=== PATIENT | male | born 1940 | race African-American/Black ===

== ENCOUNTER 2019-06-08 08:14 | Emergency (ER) | payer MEDICARE ==
[2019-06-08 10:36] LABS: APPEARANCE,URINE CLEAR; BILIRUBIN,URINE NEGATIVE (NEGATIVE); COLOR,URINE YELLOW; GLUCOSE, URINE >=500 mg/dL (NEGATIVE); KETONES,URINE NEGATIVE (NEGATIVE); LEUKOCYTE ESTERASE,URINE TRACE (NEGATIVE); NITRITE,URINE NEGATIVE (NEGATIVE); PROTEIN,URINE 100 mg/dL (NEGATIVE); URINE SPECIFIC GRAVITY 1.011; UROBILINOGEN,URINE NEGATIVE mg/dL (<2.0)
--- NOTE | 2019-06-08 11:44 | RADIOLOGY REPORT (SQ) ---
EXAM DESCRIPTION: CHEST 2 VIEWS COMPLETED DATE/TIME: 06/08/2019 11:35 am REASON FOR STUDY: cough COMPARISON: None. EXAM PARAMETERS: NUMBER OF VIEWS: two views TECHNIQUE: Digital Frontal and Lateral radiographic views of the chest acquired. RADIATION DOSE: NA LIMITATIONS: none FINDINGS: LUNGS AND PLEURA: Minimal bibasilar atelectasis. No consolidation or effusions. MEDIASTINUM AND HILAR STRUCTURES: No masses or contour abnormalities. HEART AND VASCULAR STRUCTURES: Heart normal size. No evidence for failure. BONES: No acute findings. HARDWARE: None in the chest. OTHER: No other significant finding. IMPRESSION: No significant findings in the chest. TECHNICAL DOCUMENTATION: JOB ID: [id number] 2010 [employer]- All Rights Reserved Reading location - IP/workstation name: [email or web address]
[2019-06-08 12:09] LABS: A TYPE INFLUENZA AG NEGATIVE (NEGATIVE); B INFLUENZA AG NEGATIVE (NEGATIVE)
[2019-06-08] MEDS ORDERED: CEPHALEXIN 500 MG CAPSULE PO ONE (12:48)
--- NOTE | 2019-06-08 12:48 | ER Document Report ---
Entered by LINDSEY ATKINSON SCRIBE 06/08/19 1120 Acting as scribe for:ELVER STEPHENSON, DO ED Flu Like - General Chief Complaint: Flu Symptoms Stated Complaint: COLD/COUGH Time Seen by Provider: 06/08/19 10:44 Primary Care Provider: PADMA GUILLORY MD [Primary Care Provider] - Follow up as needed Mode of Arrival: Ambulatory Information source: Patient Notes: This 78-year-old male patient presents to the emergency department today with complaints of a runny nose, headache, generalized body aches, cough, and nausea for the last x5 days. Patient states x5 days ago he went to [place] for his sister's and he is unsure if he had any sick contacts there. Patient denies any vomiting. TRAVEL OUTSIDE OF THE [place] IN LAST 30 DAYS: No - Related Data Allergies/Adverse Reactions: No Known Allergies Allergy (Unverified 06/08/19 09:36) Home Medications: insulin, glipizide Past Medical History - General Information source: Patient - Social History Smoking Status: Former Smoker Cigarette use (# per day): No Frequency of alcohol use: None Drug Abuse: None Lives with: Family Family History: Reviewed & Not Pertinent Patient has suicidal ideation: No Patient has homicidal ideation: No - Past Medical History Cardiac Medical History: Reports: Hx Heart Attack - x 3, Hx Hypertension Endocrine Medical History: Reports: Hx Diabetes Mellitus Type 2 Surgical Hx: Negative Review of Systems - Review of Systems Constitutional: No symptoms reported EENT: See HPI, Ear pain, Nose congestion Cardiovascular: No symptoms reported Respiratory: See HPI, Cough Gastrointestinal: See HPI, Nausea. denies: Vomiting Genitourinary: No symptoms reported Male Genitourinary: No symptoms reported Musculoskeletal: No symptoms reported Skin: No symptoms reported Hematologic/Lymphatic: No symptoms reported Neurological/Psychological: See HPI, Headaches -: Yes All other systems reviewed and negative Physical Exam - Vital signs Vitals: Temp Pulse Resp BP Pulse Ox 99 F 79 20 144/76 H 95 06/08/19 08:31 06/08/19 08:31 06/08/19 08:31 06/08/19 08:31 06/08/19 08:31 - Notes Notes: Physical Exam: General: Alert, appears well. HEENT: Normocephalic. Atraumatic. PERRL. Extraocular movements intact. Oropharynx clear. Neck: Supple. Non-tender. Respiratory: No respiratory distress. Diminished breath sounds bilaterally. Cardiovascular: Regular rate and rhythm. Abdominal: Normal Inspection. Non-tender. No distension. Normal Bowel Sounds. Back: No gross abnormalities. Extremities: Moves all four extremities. Upper extremities: Normal inspection. Normal ROM. Lower extremities: Normal inspection. No edema. Normal ROM. Neurological: Normal cognition. AAOx4. Normal speech. Psychological: Normal affect. Normal Mood. Skin: Warm. Dry. Normal color. Course - Re-evaluation Re-evalutation: 06/08/19 12:43 MDM 78 year old male presents with cough for 4 days. UA shows UTI. CXR is reassuring and flu negative. Will treat cough symptomatically and FSBS is just up a bit. Feel he is safe for follow up. I certainly see no sign of sepsis in this nice gentleman. - Vital Signs Vital signs: Temp Pulse Resp BP Pulse Ox 99 F 79 20 144/76 H 95 06/08/19 08:31 06/08/19 08:31 06/08/19 08:31 06/08/19 08:31 06/08/19 08:31 - Laboratory Laboratory results interpreted by me: 06/08/19 06/08/19 10:10 11:41 POC Glucose 195 H Urine Protein 100 H Urine Glucose (UA) >=500 H Urine Blood SMALL H Ur Leukocyte Esterase TRACE H - Diagnostic Test Radiology reviewed: Reports reviewed Discharge - Discharge Clinical Impression: Cough, Hyperglycemia UTI (urinary tract infection) Qualifiers: Urinary tract infection type: site unspecified Hematuria presence: with hematuria Qualified Code(s): N39.0 - Urinary tract infection, site not specified; R31.9 - Hematuria, unspecified Condition: Good Disposition: HOME, SELF-CARE Instructions: Cephalexin ([facility]), Cough Suppressant & Expectorant Medications, Urinary Tract Infection ([facility]) Additional Instructions: Rest, follow your diabetic diet. Please return here for any problems or any concerns. Prescriptions: Benzonatate [Tessalon Perles 100 mg Capsule] 200 mg PO Q8HP PRN #40 capsule PRN Reason: Cephalexin Monohydrate [Keflex 500 mg Capsule] 500 mg PO TID #30 capsule Referrals: PADMA GUILLORY MD [Primary Care Provider] - Follow up as needed I personally performed the services described in the documentation, reviewed and edited the documentation which was dictated to the scribe in my presence, and it accurately records my words and actions.
[2019-06-08 13:06] VITALS: BP 140/70
== END 2019-06-08 13:10 | disposition home or self-care (01) ==
LOC: ER 08:14
DX: R05 Cough (principal); N39.0 Urinary tract infection, site not specified; R31.9 Hematuria, unspecified; E11.65 Type 2 diabetes mellitus with hyperglycemia; R09.89 Other specified symptoms and signs involving the circulatory and respiratory systems; R51 Headache; R11.0 Nausea; H92.09 Otalgia, unspecified ear; R09.81 Nasal congestion; I10 Essential (primary) hypertension; Z79.4 Long term (current) use of insulin; Z87.891 Personal history of nicotine dependence
CPT/HCPCS: 99283; 82962; 81001; 87804; 71046; A9270

== ENCOUNTER 2020-01-23 15:59 | Inpatient (IN) | payer MEDICARE ==
[2020-01-23] MEDS ORDERED: NORMAL SALINE 1000 ML 1,000 ML IV ONE (16:46)
[2020-01-23] MEDS ORDERED: ONDANSETRON HCL INJ/PF 4 MG/2 ML SDV IV ONE (16:48)
--- NOTE | 2020-01-23 16:50 | ER Document Report ---
ED Medical Screen (RME) - General Chief Complaint: Abdominal Pain Stated Complaint: ABDOMINAL PAIN Time Seen by Provider: 01/23/20 16:46 Primary Care Provider: PAMDA GUILLORY MD [Primary Care Provider] - Follow up as needed Mode of Arrival: Wheelchair Information source: Patient Notes: 79-year-old male presented to ED for complaint of abdominal pain nausea and vomiting for about 1 or 2 weeks. He states he has not been to his MD. He states he does have diabetes and he takes pills and insulin. He states she has been taking his medications as ordered. He states his Accu-Chek was 200 and something this morning but does not remember what. He states he did take it this morning. Patient is alert oriented answering questions appropriately. Have ordered blood urine IV fluids nausea medicine and Accu-Chek. I have greeted and performed a rapid initial assessment of this patient. A comprehensive ED assessment and evaluation of the patient, analysis of test results and completion of medical decision making process will be conducted by an additional ED providers. TRAVEL OUTSIDE OF THE [place] IN LAST 30 DAYS: No - Related Data Allergies/Adverse Reactions: No Known Allergies Allergy (Unverified 06/08/19 09:36) Past Medical History - Past Medical History Cardiac Medical History: Reports: Hx Heart Attack - x 3, Hx Hypertension Endocrine Medical History: Reports: Hx Diabetes Mellitus Type 2 Physical Exam - Vital signs Vitals: Temp Pulse Resp BP Pulse Ox 100.1 F 103 H 20 109/66 95 01/23/20 16:06 01/23/20 16:06 01/23/20 16:06 01/23/20 16:06 01/23/20 16:06 Course - Vital Signs Vital signs: Temp Pulse Resp BP Pulse Ox 100.1 F 103 H 20 109/66 95 01/23/20 16:06 01/23/20 16:06 01/23/20 16:06 01/23/20 16:06 01/23/20 16:06 Doctor's Discharge - Discharge Referrals: PADMA GUILLORY MD [Primary Care Provider] - Follow up as needed
[2020-01-23 18:03] LABS: ABSOLUTE LYMPHOCYTES (AUTO) 0.8 10^3/uL (0.5-4.7); ABSOLUTE MONOCYTES (AUTO) 0.6 10^3/uL (0.1-1.4); ABSOLUTE NEUT (AUTO) 5.3 10^3/uL (1.7-8.2); BASOPHILS % (AUTO) 0.2 % (0-2); HEMATOCRIT 44.3 % (37.9-51.0); HEMOGLOBIN 15.5 g/dL (13.5-17.0); LYMPHOCYTES % (AUTO) 12.5 % (13-45); MEAN CORPUSCULAR HEMOGLOBIN 31.2 pg (27.0-33.4); MEAN CORPUSCULAR VOLUME 89 fl (80-97); MONOCYTES % (AUTO) 8.3 % (3-13); PLATELET COUNT 198 10^3/uL (150-450); RED BLOOD COUNT 4.97 10^6/uL (4.35-5.55); RED CELL DISTRIBUTION WIDTH 14.9 % (11.5-14.0); TOTAL CELLS COUNTED % (AUTO) 100 %; WHITE BLOOD COUNT 6.8 10^3/uL (4.0-10.5)
[2020-01-23 18:31] LABS: ALBUMIN 3.7 g/dL (3.5-5.0); ALKALINE PHOSPHATASE 66 U/L (38-126); ANION GAP 11 (5-19); ASPARTATE AMINO TRANSFERASE 115 U/L (17-59); BILIRUBIN,DIRECT 0.5 mg/dL (0.0-0.4); BILIRUBIN,TOTAL 0.9 mg/dL (0.2-1.3); BLOOD UREA NITROGEN 22 mg/dL (7-20); CALCIUM 8.5 mg/dL (8.4-10.2); CARBON DIOXIDE 26 mmol/L (22-30); CHLORIDE 94 mmol/L (98-107); GLUCOSE 257 mg/dL (75-110); POTASSIUM 4.4 mmol/L (3.6-5.0); TOTAL PROTEIN 6.6 g/dL (6.3-8.2)
--- NOTE | 2020-01-23 19:12 | ER Document Report ---
ED General - General Chief Complaint: Nausea/Vomiting/Diarrhea Stated Complaint: ABDOMINAL PAIN Time Seen by Provider: 01/23/20 16:46 Mode of Arrival: Wheelchair TRAVEL OUTSIDE OF THE [place] IN LAST 30 DAYS: No - HPI Quality of pain: Achy Associated symptoms: Nonproductive cough, Vomiting. denies: Chest pain, Chills, Diarrhea, Fever, Leg swelling, Nausea, Shortness of breath Exacerbated by: Denies Relieved by: Denies Similar symptoms previously: No Notes: Patient is a 79-year-old male with a past medical history of diabetes who presents with abdominal pain and vomiting. Patient states he has had symptoms for 1 to 2 weeks. He states he has a dry cough. No chest pain. Pain is located in the periumbilical area. Patient states he had vomiting yesterday. He is not currently nauseous. No diarrhea. He denies any fever. No back pain. He denies any sick contacts. He denies any contact with COVID positive people. He was noted to be 87% on room air and placed on nasal cannula. - Related Data Allergies/Adverse Reactions: No Known Allergies Allergy (Verified 01/23/20 18:55) Past Medical History - General Information source: Patient - Social History Smoking Status: Never Smoker Family History: Reviewed & Not Pertinent - Past Medical History Cardiac Medical History: Reports: Hx Heart Attack - x 3, Hx Hypertension Endocrine Medical History: Reports: Hx Diabetes Mellitus Type 2 Review of Systems - Review of Systems Notes: CONSTITUTIONAL: No fever, fatigue or weight loss. SKIN: No rash. HENT: No congestion, ear pain, or sore throat. EYES: No recent vision problems or eye pain. ENDOCRINE: No polyuria or polydipsia. CARDIOVASCULAR: No chest pain or edema. RESPIRATORY: No shortness of breath, congestion, or wheezing. Positive for cough. GASTROINTESTINAL: Positive for abdominal pain and vomiting. No nausea or di arrhea. GENITOURINARY: No dysuria. MUSCULOSKELETAL: No joint pain or swelling. LYMPHATIC: No swollen glands. NEUROLOGIC: No seizures. No headache, focal weakness or sensory changes. HEMATOLOGIC: No unusual bruising or bleeding. PSYCHIATRIC: No depression or anxiety. Physical Exam - Vital signs Vitals: Temp Pulse Resp BP Pulse Ox 100.1 F 103 H 20 109/66 95 01/23/20 16:06 01/23/20 16:06 01/23/20 16:06 01/23/20 16:06 01/23/20 16:06 Interpretation: Normal - Notes Notes: VITAL SIGNS: Hypoxic on room air. Mild tachypnea. GENERAL: No acute distress, non-toxic appearance. HEAD: Normal with no signs of head trauma. EYES: EOMI, conjunctiva normal, no discharge. EARS: Hearing grossly intact. NOSE: Normal. THROAT: Oropharynx is normal. NECK: Normal range of motion, no tenderness, supple, no lymphadenopathy, No adenopathy, no JVD. CHEST: Coarse breath sounds bilaterally. CARDIAC: Regular rate and rhythm. S1 and S2, without murmurs, gallops, or rubs. VASCULAR: No Edema. ABDOMEN: Normal and soft. Discomfort to palpation of periumbilical area and left upper quadrant. GENITOURINARY: Normal, No tenderness LYMPATHTIC: No lymphadenopathy noted. MUSCULOSKELETAL: Good range of motion of all major joints. Extremities without clubbing, cyanosis or edema. NEUROLOGICAL: Alert and oriented x 3. No focal sensory or strength deficits. Speech normal. Follows commands appropriately. PSYCHIATRIC: Normal Affect, judgement and mood. SKIN: Normal appearance with no rashes or lesions. Course - Re-evaluation Re-evalutation: 01/23/20 19:12 Patient was noted to be hypoxic on room air with a good waveform. He is denying shortness of breath but has had a cough. He also has nausea and abdominal pain. I am concerned for COVID-19. We will obtain testing. Patient will need to be admitted to the hospital as he is currently on 3 L nasal cannula. Chest x-ray was inconclusive for infection, so I obtained a CT. He does have groundglass opacities. He was given Decadron as I am concerned for COVID. He also has an incidental finding of a right ureteral stone that is 10 cm with severe hydronephrosis. I discussed this with the patient. He is not having any symptoms or pain or urinary symptoms. He states he has had a kidney stone for "quite a while" but he has not treated it. I did discuss with [facility]. They recommended that he follow-up outpatient and stated this is not requiring and emergent procedure. They also recommended that we obtain a urine culture and give Rocephin to prevent infection. I discussed this with the patient. He is agreeable to admission. I also discussed with the hospitalist. 01/23/20 23:42 01/24/20 02:36 - Vital Signs Vital signs: Temp Pulse Resp BP Pulse Ox 98.8 F 103 H 20 134/81 H 96 01/23/20 17:46 01/23/20 16:06 01/24/20 01:01 01/24/20 01:00 01/24/20 01:01 - Laboratory Result Diagrams: 01/23/20 17:34 01/23/20 17:34 Laboratory results interpreted by me: 01/23/20 01/23/20 01/23/20 17:34 17:34 17:34 RDW 14.9 H Lymph % (Auto) 12.5 L Seg Neutrophils % 79.0 H Sodium 131.1 L Chloride 94 L BUN 22 H Creatinine 1.38 H Est GFR (MDRD) Non-Af 50 L Glucose 257 H Ferritin 1000.00 H Direct Bilirubin 0.5 H AST 115 H ALT 95 H Lactate Dehydrogenase 461 H C-Reactive Protein 159.1 H Lipase 345.1 H Urine Protein Urine Glucose (UA) Urine Blood Urine Urobilinogen 01/23/20 20:53 RDW Lymph % (Auto) Seg Neutrophils % Sodium Chloride BUN Creatinine Est GFR (MDRD) Non-Af Glucose Ferritin Direct Bilirubin AST ALT Lactate Dehydrogenase C-Reactive Protein Lipase Urine Protein 100 H Urine Glucose (UA) >=500 H Urine Blood SMALL H Urine Urobilinogen 2.0 H - EKG Interpretation by Me EKG shows normal: Sinus rhythm Rate: Normal Additional EKG results interpreted by me: 01/23/20 19:12 EEG interpreted by me. Sinus rhythm at a rate of 85. QTc 433. No acute ST changes. No previous EKG available for comparison. Discharge - Discharge Clinical Impression: Ureteral stone with hydronephrosis Acute respiratory failure Qualifiers: Respiratory failure complication: hypoxia Qualified Code(s): J96.01 - Acute respiratory failure with hypoxia Condition: Stable Disposition: ADMITTED INPATIENT Admitting Provider: Muriel (Hospitalist) Unit Admitted: Medical Floor
[2020-01-23 19:18] LABS: VENOUS BLOOD HCO3 26.8 mmol/L (20-32); VENOUS BLOOD PCO2 46.8 mmHg (35-63); VENOUS BLOOD PH 7.38 (7.30-7.42)
--- NOTE | 2020-01-23 19:34 | RADIOLOGY REPORT (SQ) ---
EXAM DESCRIPTION: CHEST SINGLE VIEW IMAGES COMPLETED DATE/TIME: 01/23/2020 7:15 pm REASON FOR STUDY: cough, shortness of breath COMPARISON: 06/08/2019 EXAM PARAMETERS: NUMBER OF VIEWS: One view. TECHNIQUE: Single frontal radiographic view of the chest acquired. RADIATION DOSE: NA LIMITATIONS: None. FINDINGS: LUNGS AND PLEURA: Mild chronic interstitial changes. Cannot exclude slight opacification in the medial right base. MEDIASTINUM AND HILAR STRUCTURES: No masses. Contour normal. HEART AND VASCULAR STRUCTURES: Heart normal in size. Normal vasculature. BONES: No acute findings. HARDWARE: None in the chest. OTHER: No other significant finding. IMPRESSION: Chronic lung changes. Cannot exclude a very limited right lower lobe pneumonia. TECHNICAL DOCUMENTATION: JOB ID: [id number] 2010 [employer]- All Rights Reserved Reading location - IP/workstation name: [email or web address]
[2020-01-23 19:43] LABS: A TYPE INFLUENZA AG NEGATIVE (NEGATIVE); B INFLUENZA AG NEGATIVE (NEGATIVE)
[2020-01-23 19:59] LABS: C-REACTIVE PROTEIN 159.1 mg/L (<10.0)
--- NOTE | 2020-01-23 20:17 | RADIOLOGY REPORT (SQ) ---
CT CHEST, ABDOMEN, AND PELVIS WITHOUT INTRAVENOUS CONTRAST: 01/23/2020 7:11 PM CDT HISTORY: 79-year old with abdominal and chest pain. COMPARISON: None available TECHNIQUE: Axial contiguous images were obtained from the lung apices to the proximal femurs without intravenous intravenous contrast administered. Sagittal and coronal reconstructions were also obtained and reviewed. This exam was performed according to our departmental dose-optimization program, which includes automated exposure control, adjustment of the mA and/or KV according to the patient's size and/or use of iterative reconstruction technique. FINDINGS: The heart size is enlarged. No pericardial effusion is seen. Coronary artery calcifications are seen. No significant mediastinal, supraclavicular, or axillary lymphadenopathy is seen. The thoracic aorta is at the upper limits of normal in size. The main pulmonary artery is within normal limits for size. There are bilateral interstitial airspace opacities present. Most of these are predominantly in the periphery. No discrete pleural effusion is seen. There is no evidence of a pneumothorax. The bones demonstrate no suspicious lytic or blastic lesion. The visualized hepatic parenchyma is unremarkable. There is a hypodensity within the dome of the right lobe of the liver measuring up to 1.5 cm. This likely represents a cyst. There is a similar lesion seen near the falciform ligament measuring at least 2.0 cm. The gallbladder demonstrates no evidence of calcified gallstones. The spleen is normal in size. The pancreas is unremarkable. The bilateral adrenal glands appear unremarkable. There is moderate to severe right hydroureteronephrosis, secondary to a 1 cm calculus at the proximal right ureter, just distal to the ureteropelvic junction. There are calculi seen at the left kidney measuring up to 1 cm in size. No other right renal calculi are seen. No bladder calculi are apparent. The urinary bladder is mildly distended, and appears grossly unremarkable. The stomach is not well distended. The small bowel loops appear unremarkable. No pericolonic inflammatory stranding is seen. There are multiple diverticula seen within the sigmoid and descending colon, without evidence to suggest diverticulitis. The appendix appears unremarkable. There is no evidence of pneumoperitoneum or free fluid. The aorta and IVC appear normal in size. No significantly enlarged lymph nodes are seen in the abdomen or pelvis. Review of the bone show no evidence of any suspicious lytic or blastic lesions. Multilevel degenerative changes are seen at the thoracic and lumbar spine. There is minimal anterolisthesis of L4 over L5 by 2 to 3 mm. There is a disc osteophyte at L5/S1. IMPRESSION: There are bilateral groundglass airspace opacities most pronounced within the periphery. These likely reflect an atypical infection, though this can also be seen with interstitial lung processes and other etiologies. There is moderate to severe right hydroureteronephrosis, secondary to a 1 cm calculus at the proximal right ureter, just distal to the ureteropelvic junction. There are calculi seen at the left kidney measuring up to 1 cm in size.
[2020-01-23] MEDS ORDERED: DEXAMETHASONE SOD PHOS INJ 10 MG/1 ML VIAL IV ONE (20:32)
[2020-01-23 21:40] LABS: APPEARANCE,URINE SLIGHTLY-CLOUDY; BILIRUBIN,URINE NEGATIVE (NEGATIVE); COLOR,URINE YELLOW; GLUCOSE, URINE >=500 mg/dL (NEGATIVE); KETONES,URINE NEGATIVE (NEGATIVE); LEUKOCYTE ESTERASE,URINE NEGATIVE (NEGATIVE); NITRITE,URINE NEGATIVE (NEGATIVE); PROTEIN,URINE 100 mg/dL (NEGATIVE); URINE SPECIFIC GRAVITY 1.015
--- NOTE | 2020-01-23 21:54 | EKG REPORT ---
SEVERITY:- BORDERLINE ECG - SINUS RHYTHM BORDERLINE LEFT AXIS DEVIATION CONSIDER ANTERIOR INFARCT : Confirmed by: Joid Greenwood MD 23-Jan-2020 21:53:35
[2020-01-23] MEDS ORDERED: CEFTRIAXONE 1 GM/D5W RTU 1 GM/50 ML RTUPB IV ONE (23:25)
[2020-01-24] MEDS ORDERED: MAGNESIUM HYDROXIDE SUSP 30 ML UDCUP PO PRN (00:18)
[2020-01-24] MEDS ORDERED: MAG HYDROX/AL HYDROX/SIMETH SUSP 30 ML UDCUP PO PRN (00:18)
[2020-01-24] MEDS ORDERED: ACETAMINOPHEN 325 MG TABLET PO PRN (00:22)
[2020-01-24] MEDS ORDERED: MORPHINE SULFATE 10 MG/ML INJ IV PRN ×5 (00:22→18:07)
[2020-01-24] MEDS ORDERED: LORAZEPAM INJ 2 MG/1 ML VIAL IV PRN (00:22)
[2020-01-24] MEDS ORDERED: METOPROLOL TARTRATE PF/INJ 5 MG/5 ML SDV IV PRN (00:22)
[2020-01-24] MEDS ORDERED: HYDRALAZINE HCL INJ/PF 20 MG/1 ML SDV IV PRN (00:22)
[2020-01-24] MEDS ORDERED: MELATONIN 5 MG TABLET PO PRN (00:22)
[2020-01-24] MEDS ORDERED: GLUCAGON,HUMAN RECOMB 1 MG INJ IM PRN (00:25)
[2020-01-24] MEDS ORDERED: DEXTROSE 40% GEL 15 GM TUBE PO PRN ×2 (00:25)
[2020-01-24] MEDS ORDERED: DEXTROSE 50%-WATER 25 GM/50 ML DISP.SYRIN IV PRN ×2 (00:25)
[2020-01-24] MEDS ORDERED: AZITHROMYCIN INJ 500 MG VIAL IV PRN (01:00)
[2020-01-24] MEDS ORDERED: AZITHROMYCIN 500 MG in DEXTROSE 5%-WATER 250 ML IV ONE (01:00)
[2020-01-24] MEDS ORDERED: AZITHROMYCIN INJ 500 MG VIAL IV ONE (03:15)
--- NOTE | 2020-01-24 04:09 | PDOC H&P ---
History of Present Illness Admission Date/PCP: 01/23/2020 23:55 PADMA GUILLORY MD Patient complains of: Dyspnea History of Present Illness: VANIA NUNES is a 79 year old male who presents the emergency room with a 1- week history of dyspnea. He admits gradually worsening dyspnea accompanied by a nonproductive cough and intermittent chest pains over the course of the last week. His dyspnea has more recently been associated with subjective fever with chills, vague achy periumbilical abdominal pain and one episode of vomiting yesterday. His dyspnea is worsened with exertion. He denies other associated or accompanying signs and symptoms. He denies prior similar episodes. He has not identified any additional aggravating or ameliorating factors for his dyspnea. In the emergency room he was found to be hypoxic on room air and improved with supplemental oxygen via nasal cannula. His chest CT revealed a multifocal pneumonia consistent with COVID-19. Patient was subsequently admi tted for further evaluation and treatment after initiation of dexamethasone and antibiotic therapy in the emergency room. Patient is noted to be a very poor historian. Past Medical History Cardiac Medical History: Reports: Coronary Artery Disease, Myocardial Infarction - x 3, Hypertension Denies: Atrial Fibrillation, DVT, Pulmonary Embolism Pulmonary Medical History: Denies: Asthma, Chronic Obstructive Pulmonary Disease (COPD) EENT Medical History: Denies: Cataracts, Ears - Hearing aids Neurological Medical History: Denies: Hemorrhagic CVA, Ischemic CVA, Seizures Endocrine Medical History: Reports: Diabetes Mellitus Type 2 Denies: Diabetes Mellitus Type 1, Hyperthyroidism, Hypothyroidism, Obesity Renal/ Medical History: Reports: Nephrolithiasis Denies: Chronic Kidney Disease Malignancy Medical History: Reports: None GI Medical History: Denies: Cirrhosis, Hepatitis, Peptic Ulcer Disease Musculoskeltal Medical History: Denies: Fibromyalgia, Gout Skin Medical History: Denies: Eczema, Psoriasis Psychiatric Medical History: Denies: Alcohol Dependency, Substance Abuse, Tobacco Dependency Traumatic Medical History: Reports: None Hematology: Denies: Anemia, Bleeding Tendencies Infectious Medical History: Reports: None Past Surgical History Past Surgical History: Reports: Other - Prostate surgery: TURP Social History Information Source: Patient Lives with: Family Smoking Status: Never Smoker Electronic Cigarette use?: No Frequency of Alcohol Use: None Hx Recreational Drug Use: No Drugs: None Hx Prescription Drug Abuse: No - Advance Directive Resuscitation Status: Full Code Surrogate healthcare decision maker:: Chiquita Gabe Family History Family History: denies: CAD, DM, Hypertension, Malignancy Parental Family History Reviewed: Yes Children Family History Reviewed: No Sibling(s) Family History Reviewed.: Yes Medication/Allergy Home Medications: Benzonatate [Tessalon Perles 100 mg Capsule] 200 mg PO Q8HP PRN #40 capsule 06/08/19 Cephalexin Monohydrate [Keflex 500 mg Capsule] 500 mg PO TID #30 capsule Insulin Degludec [Tresiba Flextouch U-200] 20 units SQ DAILY 06/08/19 Lisinopril 20 mg PO DAILY 06/08/19 Pioglitazone HCl [Actos 15 mg Tablet] 15 mg PO DAILY 06/08/19 Allergies/Adverse Reactions: No Known Allergies Allergy (Verified 01/23/20 18:55) Review of Systems Constitutional: PRESENT: as per HPI, chills, fever(s) Eyes: ABSENT: visual disturbances, other - Eye pain Ears: ABSENT: hearing changes, other - Ear pain Nose, Mouth, and Throat: ABSENT: headache(s), sore throat Cardiovascular: PRESENT: as per HPI, chest pain, dyspnea on exertion. ABSENT: palpitations Respiratory: PRESENT: as per HPI, cough, dyspnea. ABSENT: hemoptysis, sputum Gastrointestinal: PRESENT: as per HPI, abdominal pain, nausea, vomiting. ABSENT: constipation, diarrhea Genitourinary: ABSENT: dysuria, hematuria Musculoskeletal: ABSENT: joint swelling, muscle weakness Integumentary: ABSENT: pruritus, rash Neurological: ABSENT: confusion, convulsions, focal weakness, memory loss, syncope Psychiatric: ABSENT: anxiety, depression Endocrine: ABSENT: cold intolerance, heat intolerance Hematologic/Lymphatic: ABSENT: easy bleeding, easy bruising Allergic/Immunologic: ABSENT: seasonal rhinorrhea Physical Exam Vital Signs: Temp Pulse Resp BP Pulse Ox 98.8 F 103 H 25 H 142/80 H 97 01/23/20 17:46 01/23/20 16:06 01/23/20 21:01 01/23/20 21:01 01/23/20 21:01 Intake & Output 01/21/20 01/22/20 01/23/20 23:59 23:59 23:59 Intake Total 1000 Balance 1000 Weight 65.9 kg General appearance: PRESENT: no acute distress, cooperative, other - On supplemental oxygen at the time of my exam Head exam: PRESENT: atraumatic, normocephalic Eye exam: PRESENT: conjunctiva pink. ABSENT: conjunctival injection, scleral icterus Ear exam: PRESENT: normal external ear exam. ABSENT: bleeding, drainage Mouth exam: PRESENT: dry mucosa, neck supple Neck exam: ABSENT: thyromegaly, tracheal deviation Respiratory exam: PRESENT: clear to auscultation randy, symmetrical, unlabored, other - On supplemental oxygen at time of my exam Cardiovascular exam: PRESENT: RRR. ABSENT: clicks, gallop, rubs Pulses: PRESENT: normal radial pulses, normal dorsalis pedis pul Vascular exam: PRESENT: normal capillary refill. ABSENT: pallor GI/Abdominal exam: PRESENT: normal bowel sounds, soft, tenderness - Mild periumbilical tenderness to palpation without localization Rectal exam: PRESENT: deferred Extremities exam: ABSENT: joint swelling, pedal edema Musculoskeletal exam: ABSENT: deformity, dislocation Neurological exam: PRESENT: alert, oriented to person, oriented to place, oriented to time, oriented to situation, CN II-XII grossly intact. ABSENT: motor sensory deficit Psychiatric exam: PRESENT: appropriate affect, normal mood Skin exam: PRESENT: dry, intact, warm. ABSENT: jaundice, rash, urticaria Results Laboratory Results: 01/23/20 17:34 01/23/20 17:34 01/23/20 01/23/20 01/23/20 17:34 17:34 17:34 WBC 6.8 RBC 4.97 Hgb 15.5 Hct 44.3 MCV 89 MCH 31.2 MCHC 35.0 RDW 14.9 H Plt Count 198 Seg Neutrophils % 79.0 H VBG pH VBG pCO2 VBG HCO3 VBG Base Excess Sodium 131.1 L Potassium 4.4 Chloride 94 L Carbon Dioxide 26 Anion Gap 11 BUN 22 H Creatinine 1.38 H Est GFR ( Amer) > 60 Glucose 257 H Lactic Acid Calcium 8.5 Ferritin 1000.00 H Total Bilirubin 0.9 AST 115 H Alkaline Phosphatase 66 C-Reactive Protein 159.1 H Total Protein 6.6 Albumin 3.7 Lipase 345.1 H Urine Color Urine Appearance Urine pH Ur Specific [place] Urine Protein Urine Glucose (UA) Urine Ketones Urine Blood Urine Nitrite Ur Leukocyte Esterase Urine WBC (Auto) Urine RBC (Auto) 01/23/20 01/23/20 01/23/20 19:05 20:53 21:03 WBC RBC Hgb Hct MCV MCH MCHC RDW Plt Count Seg Neutrophils % VBG pH 7.38 VBG pCO2 46.8 VBG HCO3 26.8 VBG Base Excess 1.0 Sodium Potassium Chloride Carbon Dioxide Anion Gap BUN Creatinine Est GFR ( Amer) Glucose Lactic Acid 1.4 Calcium Ferritin Total Bilirubin AST Alkaline Phosphatase C-Reactive Protein Total Protein Albumin Lipase Urine Color YELLOW Urine Appearance SLIGHTLY-CLOUDY Urine pH 5.0 Ur Specific [place] 1.015 Urine Protein 100 H Urine Glucose (UA) >=500 H Urine Ketones NEGATIVE Urine Blood SMALL H Urine Nitrite NEGATIVE Ur Leukocyte Esterase NEGATIVE Urine WBC (Auto) 13 Urine RBC (Auto) 4 Impressions: Chest X-Ray 01/23/20 18:26 IMPRESSION: Chronic lung changes. Cannot exclude a very limited right lower lobe pneumonia. Abdomen/Pelvis CT 01/23/20 18:54 IMPRESSION: There are bilateral groundglass airspace opacities most pronounced within the periphery. These likely reflect an atypical infection, though this can also be seen with interstitial lung processes and other etiologies. There is moderate to severe right hydroureteronephrosis, secondary to a 1 cm calculus at the proximal right ureter, just distal to the ureteropelvic junction. There are calculi seen at the left kidney measuring up to 1 [address] in size. Chest CT 01/23/20 19:40 IMPRESSION: There are bilateral groundglass airspace opacities most pronounced within the periphery. These likely reflect an atypical infection, though this can also be seen with interstitial lung processes and other etiologies. There is moderate to severe right hydroureteronephrosis, secondary to a 1 cm calculus at the proximal right ureter, just distal to the ureteropelvic junction. There are calculi seen at the left kidney measuring up to 1 cm in size. Assessment and Plan - Diagnosis (1) Multifocal pneumonia Is this a current diagnosis for this admission?: Yes (2) Acute respiratory failure with hypoxia Is this a current diagnosis for this admission?: Yes (3) Person under investigation for COVID-19 Is this a current diagnosis for this admission?: Yes (4) Ureteral stone with hydronephrosis Is this a current diagnosis for this admission?: Yes (5) Hypertension Qualifiers: Hypertension type: essential hypertension Qualified Code(s): I10 - Essential (primary) hypertension Is this a current diagnosis for this admission?: Yes (6) Diabetes mellitus type 2 in nonobese Is this a current diagnosis for this admission?: Yes (7) Coronary artery disease Qualifiers: Coronary Disease-Associated Artery/Lesion type: [place] artery [place] vs. transplanted heart: [place] heart Associated angina: without angina Qualified Code(s): I25.10 - Atherosclerotic heart disease of [place] coronary artery withou t angina pectoris Is this a current diagnosis for this admission?: Yes - Plan Summary Summary: Patient will be admitted to the medical floor where he will receive routine supportive and symptomatic cares. He will be treated with IV Rocephin 1 g daily and IV a azithromycin 500 mg daily. He will receive Decadron 2 mg IV every 8 hours. He will receive supplemental oxygen utilizing nasal cannula and/or noninvasive airway pressure support devices as required to maintain adequate oxygen saturation. He will receive morphine sulfate 2 to 4 mg IV every 2 hours as needed for pain. He will be placed on a cardiac and diabetic restricted diet. Before meals and at bedtime Accu-Cheks to be performed with sliding scale insulin given for hyperglycemia and a hypoglycemic protocol in place. The emergency room physician consulted with a urologist at [facility] who recommended patient be seen in their office after his hospital course, indicating that there was no acute need for treatment of the hydroureter and ureteral lithiasis. - Time Time Spent with patient: Less than 15 minutes Medications reviewed and adjusted accordingly: Yes Anticipated Discharge Disposition: Home, Self Care Anticipated Discharge Timeframe: Undetermined - Inpatient Certification Based on my medical assessment, after consideration of the patient's comorbidities, presenting symptoms, or acuity I expect that the services needed warrant INPATIENT care.: Yes I certify that my determination is in accordance with my understanding of Medicare's requirements for reasonable and necessary INPATIENT services [42 CFR 412.3e].: Yes Medical Necessity: Significant Comorbidiites Make Outpatient Treatment Too Risky, Need Close Monitoring Due to Risk of Patient Decompensation, Need for IV Antibiotics, Risk of Complication if Not Cared For in Hospital
[2020-01-24] MEDS: DEXAMETHASONE SOD PHOSPHATE INJ 4 MG/1 ML VIAL IV SCH ×3 (06:10→22:38)
[2020-01-24] MEDS: HEPARIN SOD (PORCINE) 5,000 UNIT/ML 1 ML VIAL SUBCUT SCH ×2 (06:11→15:58)
[2020-01-24] MEDS: DOCUSATE SODIUM 100 MG CAPSULE PO SCH ×2 (09:38→17:36)
[2020-01-24] MEDS: FAMOTIDINE 20 MG TABLET PO SCH ×2 (09:38→22:39)
[2020-01-24] MEDS: INSULIN REG, HUMAN 100 UNIT/ML 3 ML VIAL (PYX) SUBCUT SCH ×4 (09:38→22:39)
[2020-01-24] MEDS: LISINOPRIL 10 MG TABLET PO SCH (16:04)
[2020-01-24] MEDS ORDERED: PHARMACY COMMUNICATION ORDER MC NR (18:15)
--- NOTE | 2020-01-24 18:19 | PDOC PROGRESS REPORT ---
Subjective Progress Note for:: 01/24/20 Subjective:: Patient was seen on afternoon rounds. Is found resting in bed, comfortably, on supplemental oxygen via nasal cannula at 5 L/min. He is not home O2 dependent. He does appear acutely ill, fatigued, with 3-4 word tachypnea. Patient's participated in conversation by speaker phone and he ultimately deferred most of the conversation to her due to fatigue. He does deny fever, chills, chest pain, palpitations, abdominal pain, nausea vomiting and diarrhea. Other than profound fatigue, he is feeling better today. TMax 100.1/24 hours. Reviewed with patient and spouse high suspicion for COVID. Discussed treatment options; both agreeable to start of Remdesivir at this time. All questions and concerns addressed. Concerns per nursing. Reason For Visit: MULTIFOCAL PNEUMONIA,ACUTE RESPIRATORY FAILURE Physical Exam Vital Signs: Temp Pulse Resp BP Pulse Ox 98.2 F 79 18 139/83 H 95 01/24/20 15:48 01/24/20 15:48 01/24/20 15:48 01/24/20 15:48 01/24/20 15:48 Intake & Output 01/23/20 01/24/20 01/25/20 06:59 06:59 06:59 Intake Total 1050 Output Total 300 400 Balance 750 -400 Weight 65.9 kg 65.9 kg General appearance: PRESENT: no acute distress, cooperative, well-developed, well-nourished, other - Acutely ill-appearing Head exam: PRESENT: atraumatic, normocephalic Eye exam: PRESENT: conjunctiva pink, EOMI, PERRLA. ABSENT: scleral icterus Mouth exam: PRESENT: moist, tongue midline Respiratory exam: PRESENT: accessory muscle use, clear to auscultation randy, symmetrical, tachypnea, other - Supplemental oxygen by nasal cannula. ABSENT: rales, rhonchi, wheezes Cardiovascular exam: PRESENT: RRR. ABSENT: diastolic murmur, rubs, systolic murmur Vascular exam: PRESENT: normal capillary refill GI/Abdominal exam: PRESENT: normal bowel sounds, soft. ABSENT: distended, guarding, mass, organolmegaly, rebound, tenderness Extremities exam: PRESENT: full ROM. ABSENT: calf tenderness, clubbing, pedal edema Neurological exam: PRESENT: alert, awake, oriented to person, oriented to place, oriented to time, oriented to situation, CN II-XII grossly intact. ABSENT: motor sensory deficit Psychiatric exam: PRESENT: appropriate affect, normal mood. ABSENT: homicidal ideation, suicidal ideation Skin exam: PRESENT: dry, intact, warm. ABSENT: cyanosis, rash Results Laboratory Results: 01/23/20 17:34 01/23/20 17:34 01/23/20 01/23/20 01/23/20 17:34 17:34 17:34 WBC 6.8 RBC 4.97 Hgb 15.5 Hct 44.3 MCV 89 MCH 31.2 MCHC 35.0 RDW 14.9 H Plt Count 198 Seg Neutrophils % 79.0 H VBG pH VBG pCO2 VBG HCO3 VBG Base Excess Sodium 131.1 L Potassium 4.4 Chloride 94 L Carbon Dioxide 26 Anion Gap 11 BUN 22 H Creatinine 1.38 H Est GFR ( Amer) > 60 Glucose 257 H Lactic Acid Calcium 8.5 Ferritin 1000.00 H Total Bilirubin 0.9 AST 115 H Alkaline Phosphatase 66 C-Reactive Protein 159.1 H Total Protein 6.6 Albumin 3.7 Lipase 345.1 H Urine Color Urine Appearance Urine pH Ur Specific [place] Urine Protein Urine Glucose (UA) Urine Ketones Urine Blood Urine Nitrite Ur Leukocyte Esterase Urine WBC (Auto) Urine RBC (Auto) 01/23/20 01/23/20 01/23/20 19:05 20:53 21:03 WBC RBC Hgb Hct MCV MCH MCHC RDW Plt Count Seg Neutrophils % VBG pH 7.38 VBG pCO2 46.8 VBG HCO3 26.8 VBG Base Excess 1.0 Sodium Potassium Chloride Carbon Dioxide Anion Gap BUN Creatinine Est GFR ( Amer) Glucose Lactic Acid 1.4 Calcium Ferritin Total Bilirubin AST Alkaline Phosphatase C-Reactive Protein Total Protein Albumin Lipase Urine Color YELLOW Urine Appearance SLIGHTLY-CLOUDY Urine pH 5.0 Ur Specific [place] 1.015 Urine Protein 100 H Urine Glucose (UA) >=500 H Urine Ketones NEGATIVE Urine Blood SMALL H Urine Nitrite NEGATIVE Ur Leukocyte Esterase NEGATIVE Urine WBC (Auto) 13 Urine RBC (Auto) 4 Impressions: Chest X-Ray 01/23/20 18:26 IMPRESSION: Chronic lung changes. Cannot exclude a very limited right lower lobe pneumonia. Abdomen/Pelvis CT 01/23/20 18:54 IMPRESSION: There are bilateral groundglass airspace opacities most pronounced within the periphery. These likely reflect an atypical infection, though this can also be seen with interstitial lung processes and other etiologies. There is moderate to severe right hydroureteronephrosis, secondary to a 1 cm calculus at the proximal right ureter, just distal to the ureteropelvic junction. There are calculi seen at the left kidney measuring up to 1 cm in size. Chest CT 01/23/20 19:40 IMPRESSION: There are bilateral groundglass airspace opacities most pronounced within the periphery. These likely reflect an atypical infection, though this can also be seen with interstitial lung processes and other etiologies. There is moderate to severe right hydroureteronephrosis, secondary to a 1 cm calculus at the proximal right ureter, just distal to the ureteropelvic junction. There are calculi seen at the left kidney measuring up to 1 cm in size. Assessment and Plan - Diagnosis (1) Multifocal pneumonia Is this a current diagnosis for this admission?: Yes Plan: Blood cultures pending. Sputum cultures pending; not yet obtained. COVID pending. Patient is provided supplemental oxygen as needed maintain saturations greater than 89%. Patient is empirically placed on IV azithromycin and Rocephin. As needed nebulizer treatments. He is placed on Robitussin as needed. Pulmonary toilet is encouraged with incentive spirometer, flutter valve, early ambulation. (2) Person under investigation for COVID-19 Is this a current diagnosis for this admission?: Yes Plan: COVID pending D-dimer, ferritin, CRP, LDH are all elevated. CT chest shows peripheral groundglass opacities. Full dose Lovenox. Supplemental oxygen as needed maintain saturations greater than 89%. As needed nebulizer treatments. IV dexamethasone Azithromycin as above IV Remdesivir Zinc, vitamin D, vitamin C, and melatonin supplementation. Encourage pulmonary toilet. Analgesics as needed for pleuritic chest pain. Isolation precautions. (3) Acute respiratory failure with hypoxia Is this a current diagnosis for this admission?: Yes Plan: Secondary #1 and 2. Management as above. (4) Diabetes mellitus type 2 in nonobese Is this a current diagnosis for this admission?: Yes Plan: Holding oral medications while admitted. Hemoglobin A1c pending. Patient is placed on a consistent carb diet. Accu-Cheks before meals and at bedtime with Humalog for sliding scale coverage. Hypoglycemia protocol in place. Registered dietitian outreach educator consulted. (5) Hypertension Qualifiers: Hypertension type: essential hypertension Qualified Code(s): I10 - Essential (primary) hypertension Is this a current diagnosis for this admission?: Yes Plan: Adequately controlled at present. Continue home dose lisinopril. IV hydralazine as needed for blood pressure control. Cardiac tach. (6) Ureteral stone with hydronephrosis Is this a current diagnosis for this admission?: Yes Plan: CT revealed moderate to severe right hydroureteronephrosis secondary to a 1 cm calculus. Per patient and family, they have been aware of the stone for multiple years. Last CT imaging done at [facility]. Have requested prior imaging for comparison on hydronephrosis. Per ED documentation and H&P, the ED provider spoke with urology and were told that this could be managed as an outpatient following treatment for his acute respiratory failure. We will continue gentle IV fluid hydration. Analgesics as needed. Start Flomax; although clearly this will not be sufficient for a 1 cm stone but may assist with any small sediment needing to pass. Strict I&O's. Trend chemistries to monitor for worsening renal function. Upon receipt of prior images, may need to re-consult urology services. (7) Coronary artery disease Qualifiers: Coronary Disease-Associated Artery/Lesion type: [place] artery [place] vs. transplanted heart: [place] heart Associated angina: without angina Qualified Code(s): I25.10 - Atherosclerotic heart disease of [place] coronary artery without angina pectoris Is this a current diagnosis for this admission?: Yes Plan: No active chest pain. Currently on full dose Lovenox related to elevated d-dimer with high clinical suspicion for COVID-19. Daily statin therapy. Cardiac diet. - Time Time Spent with patient: 35 or more minutes Medications reviewed and adjusted accordingly: Yes Anticipated Discharge Disposition: Home, Self Care Anticipated Discharge Timeframe: >72 hrs
[2020-01-24 22:20] LABS: ARTERIAL BLOOD BASE EXCESS -1.6 mmol/L; ARTERIAL BLOOD FIO2 6L; ARTERIAL BLOOD H2CO3 1.05 mmol/L (1.05-1.35); ARTERIAL BLOOD HCO3 22.2 mmol/L (20-24); ARTERIAL BLOOD O2 SATURATION 94.5 % (94-98); ARTERIAL BLOOD PCO2 34.9 mmHg (35-45); ARTERIAL BLOOD PH 7.42 (7.35-7.45); ARTERIAL BLOOD TOTAL CO2 23.3 mmol/L (23-27)
[2020-01-24] MEDS: ENOXAPARIN SODIUM INJ 80 MG/0.8 ML DISP.SYRIN SUBCUT SCH (22:38)
[2020-01-24] MEDS: CEFTRIAXONE 1 GM/D5W RTU 1 GM/50 ML RTUPB IV SCH (22:38)
[2020-01-24] MEDS: ATORVASTATIN CALCIUM 20 MG TABLET PO SCH (22:39)
[2020-01-24] MEDS: GUAIFENESIN SYRP 200 MG/10 ML UDC PO PRN (22:39)
[2020-01-24] MEDS: NORMAL SALINE 1000 ML 1,000 ML IV PRN (22:40)
[2020-01-24] MEDS: AZITHROMYCIN 500 MG in DEXTROSE 5%-WATER 250 ML IV SCH (22:40)
[2020-01-25] MEDS: ALBUTEROL SULFATE 0.083% NEB 2.5 MG/3 ML AMPUL NEB PRN ×3 (00:30→16:25)
[2020-01-25 05:06] LABS: HEMATOCRIT 40.2 % (37.9-51.0); HEMOGLOBIN 14.1 g/dL (13.5-17.0); MEAN CORPUSCULAR HEMOGLOBIN 31.1 pg (27.0-33.4); MEAN CORPUSCULAR HGB CONC 35.1 g/dL (32.0-36.0); MEAN CORPUSCULAR VOLUME 89 fl (80-97); PLATELET COUNT 240 10^3/uL (150-450); RED BLOOD COUNT 4.52 10^6/uL (4.35-5.55); RED CELL DISTRIBUTION WIDTH 14.8 % (11.5-14.0); WHITE BLOOD COUNT 5.6 10^3/uL (4.0-10.5)
[2020-01-25] MEDS: DEXAMETHASONE SOD PHOSPHATE INJ 4 MG/1 ML VIAL IV SCH ×3 (05:46→22:22)
[2020-01-25 06:12] LABS: ALBUMIN 3.2 g/dL (3.5-5.0); ALKALINE PHOSPHATASE 65 U/L (38-126); ANION GAP 11 (5-19); ASPARTATE AMINO TRANSFERASE 100 U/L (17-59); BILIRUBIN,DIRECT 0.4 mg/dL (0.0-0.4); BILIRUBIN,TOTAL 0.6 mg/dL (0.2-1.3); BLOOD UREA NITROGEN 27 mg/dL (7-20); CALCIUM 8.5 mg/dL (8.4-10.2); CARBON DIOXIDE 22 mmol/L (22-30); CHLORIDE 103 mmol/L (98-107); CHOLESTEROL 178.96 mg/dL (0-200); GLUCOSE 257 mg/dL (75-110); POTASSIUM 4.3 mmol/L (3.6-5.0); TOTAL PROTEIN 5.9 g/dL (6.3-8.2); TRIGLYCERIDES 168 mg/dL (<150)
[2020-01-25 06:22] LABS: DIRECT LDL 83 mg/dL (<100)
[2020-01-25 06:27] LABS: VLDL CHOLESTEROL 33.6 mg/dL (10-31)
[2020-01-25] MEDS: INSULIN REG, HUMAN 100 UNIT/ML 3 ML VIAL (PYX) SUBCUT SCH ×4 (09:27→22:22)
[2020-01-25] MEDS: FAMOTIDINE 20 MG TABLET PO SCH ×2 (09:34→22:55)
[2020-01-25] MEDS: DOCUSATE SODIUM 100 MG CAPSULE PO SCH ×2 (09:34→19:38)
[2020-01-25] MEDS: ENOXAPARIN SODIUM INJ 80 MG/0.8 ML DISP.SYRIN SUBCUT SCH ×2 (09:39→22:24)
[2020-01-25] MEDS: LISINOPRIL 10 MG TABLET PO SCH (09:44)
[2020-01-25] MEDS ORDERED: INSULIN DEGLUDEC 20 UNIT SUBCUT SCH (10:00)
[2020-01-25] MEDS ORDERED: (PENDING PHARMACY ID) (Lisinopril [Lisinopril] 20 MG) PO SCH (10:00)
[2020-01-25] MEDS ORDERED: REMDESIVIR (EUA) 200 MG in NORMAL SALINE 250 ML IV ONE (15:30)
--- NOTE | 2020-01-25 18:24 | PDOC PROGRESS REPORT ---
Subjective Progress Note for:: 01/25/20 Subjective:: Patient was seen on afternoon rounds. Patient is found resting in bed on supplemental oxygen via simple mask at 10 L/min.; SpO2 99% but with tachypnea (RR 24) and accessory muscle use. He is not home O2 dependent. He does appear acutely ill, fatigued, with 3-4 word tachypnea. Patient's participated in conversation by speaker phone and he ultimately deferred most of the conversation to her due to fatigue. He does deny fever, chills, chest pain, palpitations, abdominal pain, nausea, vomiting and diarrhea. TMax 100.1/48 hours. Discussed positive COVID result, recommendations that patient's family members self-quarantine and consider testing, and treatment options. Again decline convalescent serum. Confirm FULL CODE status. All questions and concerns addressed. No concerns per nursing. Have asked that patient be trialed on oxymizer; if not sufficient, would prefer high flow nasal cannula over simple mask. Reason For Visit: MULTIFOCAL PNEUMONIA,ACUTE RESPIRATORY FAILURE Physical Exam Vital Signs: Temp Pulse Resp BP Pulse Ox 97.8 F 78 20 139/78 H 99 01/25/20 16:49 01/25/20 16:49 01/25/20 16:49 01/25/20 16:49 01/25/20 16:49 Intake & Output 01/24/20 01/25/20 01/26/20 06:59 06:59 06:59 Intake Total 1050 140 Output Total 300 1200 Balance 750 -1060 Weight 65.9 kg 64.9 kg General appearance: PRESENT: cooperative, mild distress, well-developed, well- nourished, other - Acutely ill-appearing Head exam: PRESENT: atraumatic, normocephalic Eye exam: PRESENT: conjunctiva pink, EOMI, PERRLA. ABSENT: scleral icterus Mouth exam: PRESENT: moist, tongue midline Respiratory exam: PRESENT: accessory muscle use, clear to auscultation randy, symmetrical, tachypnea, other - supplemental oxygen by simple mask. ABSENT: rales, rhonchi, wheezes Cardiovascular exam: PRESENT: RRR. ABSENT: diastolic murmur, rubs, systolic murmur Vascular exam: PRESENT: normal capillary refill GI/Abdominal exam: PRESENT: normal bowel sounds, soft. ABSENT: distended, guarding, mass, organolmegaly, rebound, tenderness Rectal exam: PRESENT: deferred Extremities exam: PRESENT: full ROM. ABSENT: calf tenderness, clubbing, pedal edema Neurological exam: PRESENT: alert, awake, oriented to person, oriented to place, oriented to time, oriented to situation, CN II-XII grossly intact, other - fatigued, forgetful. ABSENT: motor sensory deficit Psychiatric exam: PRESENT: appropriate affect, normal mood. ABSENT: homicidal ideation, suicidal ideation Skin exam: PRESENT: dry, intact, warm. ABSENT: cyanosis, rash Results Laboratory Results: 01/25/20 04:12 01/25/20 04:12 01/24/20 01/25/20 01/25/20 21:45 04:12 04:12 WBC 5.6 RBC 4.52 Hgb 14.1 Hct 40.2 MCV 89 MCH 31.1 MCHC 35.1 RDW 14.8 H Plt Count 240 Carbonic Acid 1.05 HCO3/H2CO3 Ratio 21:1 ABG pH 7.42 ABG pCO2 34.9 L ABG pO2 70.0 L ABG HCO3 22.2 ABG O2 Saturation 94.5 ABG Base Excess -1.6 FiO2 6L Sodium 135.5 L Potassium 4.3 Chloride 103 Carbon Dioxide 22 Anion Gap 11 BUN 27 H Creatinine 1.06 Est GFR ( Amer) > 60 Glucose 257 H Calcium 8.5 Magnesium 2.3 Total Bilirubin 0.6 AST 100 H Alkaline Phosphatase 65 Total Protein 5.9 L Albumin 3.2 L Triglycerides 168 H Cholesterol 178.96 LDL Cholesterol Direct 83 VLDL Cholesterol 33.6 H HDL Cholesterol 69 01/23/20 20:53 Clean Catch Midstream Urine Culture - Final NO GROWTH 2 DAYS Impressions: Chest X-Ray 01/23/20 18:26 IMPRESSION: Chronic lung changes. Cannot exclude a very limited right lower lobe pneumonia. Abdomen/Pelvis CT 01/23/20 18:54 IMPRESSION: There are bilateral groundglass airspace opacities most pronounced within the periphery. These likely reflect an atypical infection, though this can also be seen with interstitial lung processes and other etiologies. There is moderate to severe right hydroureteronephrosis, secondary to a 1 cm calculus at the proximal right ureter, just distal to the ureteropelvic junction. There are calculi seen at the left kidney measuring up to 1 cm in size. Chest CT 01/23/20 19:40 IMPRESSION: There are bilateral groundglass airspace opacities most pronounced within the periphery. These likely reflect an atypical infection, though this can also be seen with interstitial lung processes and other etiologies. There is moderate to severe right hydroureteronephrosis, secondary to a 1 cm calculus at the proximal right ureter, just distal to the ureteropelvic junction. There are calculi seen at the left kidney measuring up to 1 cm in size. Assessment and Plan - Diagnosis (1) Pneumonia due to COVID-19 virus Is this a current diagnosis for this admission?: Yes Plan: COVID positive, D-dimer, ferritin, CRP, LDH are all elevated. CT chest shows peripheral groundglass opacities. Full dose Lovenox. Supplemental oxygen as needed maintain saturations greater than 89%. Has required increased support; will trial oxymizer. Scheduled and as needed nebulizer treatments. IV dexamethasone Azithromycin as below. IV Remdesivir Zinc, vitamin D, vitamin C, and melatonin supplementation. Encourage pulmonary toilet. Analgesics as needed for pleuritic chest pain. Isolation precautions. FULL CODE Patient and again decline convalescent serum. (2) Multifocal pneumonia Is this a current diagnosis for this admission?: Yes Plan: Secondary to SARS-COV-2 blood cultures negative at 24 hours. Sputum cultures pending; not yet obtained. COVID positive. Patient is provided supplemental oxygen as needed maintain saturations greater than 89%. Patient is empirically placed on IV azithromycin and Rocephin. We will plan on discontinuing IV Rocephin tomorrow after receiving third dose. We will plan on completing a full 5-day course of azithromycin. Remaining evaluation management as above. (3) Acute respiratory failure with hypoxia Is this a current diagnosis for this admission?: Yes Plan: Secondary #1 and 2. Management as above. (4) Diabetes mellitus type 2 in nonobese Is this a current diagnosis for this admission?: Yes Plan: A1C 10.2% Holding oral medications while admitted. Patient is placed on a consistent carb diet. Start Lantus 6 units nightly. Glucose is elevated, in part, due to steroid use. Accu-Cheks before meals and at bedtime with Humalog for sliding scale coverage. Hypoglycemia protocol in place. Registered dietitian staff educator consulted. (5) Hypertension Qualifiers: Hypertension type: essential hypertension Qualified Code(s): I10 - Essential (primary) hypertension Is this a current diagnosis for this admission?: Yes Plan: Adequately controlled at present. Continue home dose lisinopril. IV hydralazine as needed for blood pressure control. Cardiac diet (6) Ureteral stone with hydronephrosis Is this a current diagnosis for this admission?: Yes Plan: CT revealed moderate to severe right hydroureteronephrosis secondary to a 1 cm calculus. Per patient and family, they have been aware of the stone for multiple years. Last CT imaging done at [facility]. Have requested prior imaging for comparison on hydronephrosis. Per ED documentation and H&P, the ED provider spoke with urology and were told that this could be managed as an outpatient following treatment for his acute respiratory failure. We will continue gentle IV fluid hydration. Analgesics as needed. Start Flomax; although clearly this will not be sufficient for a 1 cm stone but may assist with any small sediment needing to pass. Strict I&O's. Trend chemistries to monitor for worsening renal function. Renal function is improved today. Have requested most recent renal u/s and CT imagining from [facility] (Patient's believes CT was done there within the last year). Upon receipt of prior images, may need to re-consult urology services. (7) Coronary artery disease Qualifiers: Coronary Disease-Associated Artery/Lesion type: [place] artery [place] vs. transplanted heart: [place] heart Associated angina: without angina Qualified Code(s): I25.10 - Atherosclerotic heart disease of [place] coronary artery withou t angina pectoris Is this a current diagnosis for this admission?: Yes Plan: No active chest pain. Currently on full dose Lovenox related to elevated d-dimer in setting of COVID- 19. Daily statin therapy. Cardiac diet. (8) Person under investigation for COVID-19 Is this a current diagnosis for this admission?: Yes Plan: COVID testing positive. Remaining management as above. - Time Time Spent with patient: 35 or more minutes Medications reviewed and adjusted accordingly: Yes Anticipated Discharge Disposition: Home, Self Care Anticipated Discharge Timeframe: >72 hrs
[2020-01-25] MEDS: TAMSULOSIN HCL 0.4 MG CAP.SR.24H PO SCH (19:39)
[2020-01-25] MEDS: INSULIN GLARGINE,HUM.REC.ANLOG 1,000 UNIT/10 ML VIAL SUBCUT SCH (22:23)
[2020-01-25] MEDS: GUAIFENESIN SYRP 200 MG/10 ML UDC PO PRN (22:30)
[2020-01-25] MEDS: CEFTRIAXONE 1 GM/D5W RTU 1 GM/50 ML RTUPB IV SCH (22:31)
[2020-01-25] MEDS: AZITHROMYCIN 500 MG in DEXTROSE 5%-WATER 250 ML IV SCH (22:31)
[2020-01-25] MEDS: ALBUTEROL SULFATE 0.083% NEB 2.5 MG/3 ML AMPUL NEB SCH (22:36)
[2020-01-25] MEDS: ATORVASTATIN CALCIUM 20 MG TABLET PO SCH (22:55)
[2020-01-26] MEDS: ALBUTEROL SULFATE 0.083% NEB 2.5 MG/3 ML AMPUL NEB SCH ×4 (02:44→21:23)
[2020-01-26] MEDS: DEXAMETHASONE SOD PHOSPHATE INJ 4 MG/1 ML VIAL IV SCH ×3 (05:48→21:34)
[2020-01-26] MEDS: INSULIN REG, HUMAN 100 UNIT/ML 3 ML VIAL (PYX) SUBCUT SCH ×4 (08:22→21:33)
[2020-01-26] MEDS: NORMAL SALINE 1000 ML 1,000 ML IV PRN (08:23)
[2020-01-26 08:31] LABS: HEMOGLOBIN 13.4 g/dL (13.5-17.0); MEAN CORPUSCULAR HEMOGLOBIN 30.8 pg (27.0-33.4); MEAN CORPUSCULAR HGB CONC 34.3 g/dL (32.0-36.0); MEAN CORPUSCULAR VOLUME 90 fl (80-97); PLATELET COUNT 309 10^3/uL (150-450); RED BLOOD COUNT 4.35 10^6/uL (4.35-5.55); RED CELL DISTRIBUTION WIDTH 15.2 % (11.5-14.0); WHITE BLOOD COUNT 5.9 10^3/uL (4.0-10.5)
[2020-01-26 08:49] LABS: ANION GAP 8 (5-19); BLOOD UREA NITROGEN 29 mg/dL (7-20); CALCIUM 8.5 mg/dL (8.4-10.2); CARBON DIOXIDE 26 mmol/L (22-30); CHLORIDE 106 mmol/L (98-107); GLUCOSE 224 mg/dL (75-110)
[2020-01-26 08:53] LABS: POTASSIUM 4.8 mmol/L (3.6-5.0)
[2020-01-26] MEDS: DOCUSATE SODIUM 100 MG CAPSULE PO SCH ×2 (10:09→17:24)
[2020-01-26] MEDS: LISINOPRIL 10 MG TABLET PO SCH (10:10)
[2020-01-26] MEDS: FAMOTIDINE 20 MG TABLET PO SCH ×2 (10:10→21:34)
[2020-01-26] MEDS: ENOXAPARIN SODIUM INJ 80 MG/0.8 ML DISP.SYRIN SUBCUT SCH ×2 (10:11→21:33)
[2020-01-26] MEDS: REMDESIVIR (EUA) 100 MG in NORMAL SALINE 250 ML IV SCH (11:06)
[2020-01-26 12:12] LABS: APPEARANCE,URINE CLEAR; BILIRUBIN,URINE NEGATIVE (NEGATIVE); COLOR,URINE YELLOW; GLUCOSE, URINE >=500 mg/dL (NEGATIVE); KETONES,URINE NEGATIVE (NEGATIVE); LEUKOCYTE ESTERASE,URINE NEGATIVE (NEGATIVE); NITRITE,URINE NEGATIVE (NEGATIVE); PROTEIN,URINE 100 mg/dL (NEGATIVE); URINE SPECIFIC GRAVITY 1.016; UROBILINOGEN,URINE NEGATIVE mg/dL (<2.0)
--- NOTE | 2020-01-26 17:14 | PDOC PROGRESS REPORT ---
Subjective Progress Note for:: 01/26/20 Subjective:: Patient was seen on afternoon rounds. Patient is found sitting up to the edge of bed on supplemental oxygen via oxymizer at 6 L/min.; SpO2 low to mid 80s with tachypnea. He is not home O2 dependent. Not as ill appearing today; no accessory muscle use noted. He does deny fever, chills, palpitations, abdominal pain, nausea, vomiting and diarrhea. Does confirm increased frequency of nonproductive cough with associated pleuritic chest discomfort. Afebrile x48 hours. No questions or concerns today. Nursing reports some increased confusion/forgetfulness today. Reason For Visit: MULTIFOCAL PNEUMONIA,ACUTE RESPIRATORY FAILURE Physical Exam Vital Signs: Temp Pulse Resp BP Pulse Ox 98.0 F 74 18 154/82 H 98 01/26/20 11:51 01/26/20 14:00 01/26/20 13:27 01/26/20 11:51 01/26/20 13:27 Intake & Output 01/25/20 01/26/20 01/27/20 06:59 06:59 06:59 Intake Total 440 1000 Output Total 1200 675 Balance -760 1000 -675 Weight 64.9 kg 65.2 kg General appearance: PRESENT: cooperative, mild distress, well-developed, well- nourished Head exam: PRESENT: atraumatic, normocephalic Eye exam: PRESENT: conjunctiva pink, EOMI, PERRLA. ABSENT: scleral icterus Mouth exam: PRESENT: moist, tongue midline Respiratory exam: PRESENT: clear to auscultation randy, rhonchi, symmetrical, tachypnea, other - Supplemental oxygen by Oxymizer. ABSENT: rales, wheezes Cardiovascular exam: PRESENT: RRR. ABSENT: diastolic murmur, rubs, systolic murmur Pulses: PRESENT: normal dorsalis pedis pul Vascular exam: PRESENT: normal capillary refill Extremities exam: PRESENT: full ROM. ABSENT: calf tenderness, clubbing, pedal edema Musculoskeletal exam: PRESENT: ambulatory Neurological exam: PRESENT: alert, awake, oriented to person, oriented to place, oriented to time, oriented to situation, CN II-XII grossly intact, other - Intermittent mild confusion and forgetfulness. ABSENT: motor sensory deficit Psychiatric exam: PRESENT: appropriate affect, normal mood. ABSENT: homicidal ideation, suicidal ideation Skin exam: PRESENT: dry, intact, warm. ABSENT: cyanosis, rash Results Laboratory Results: 01/26/20 07:07 01/26/20 07:07 01/26/20 01/26/20 01/26/20 07:07 07:07 11:52 WBC 5.9 RBC 4.35 Hgb 13.4 L Hct 39.0 MCV 90 MCH 30.8 MCHC 34.3 RDW 15.2 H Plt Count 309 Sodium 139.8 Potassium 4.8 Chloride 106 Carbon Dioxide 26 Anion Gap 8 BUN 29 H Creatinine 1.09 Est GFR ( Amer) > 60 Glucose 224 H Calcium 8.5 Urine Color YELLOW Urine Appearance CLEAR Urine pH 5.0 Ur Specific [place] 1.016 Urine Protein 100 H Urine Glucose (UA) >=500 H Urine Ketones NEGATIVE Urine Blood SMALL H Urine Nitrite NEGATIVE Ur Leukocyte Esterase NEGATIVE Urine WBC (Auto) 7 Urine RBC (Auto) 8 Impressions: Chest X-Ray 01/23/20 18:26 IMPRESSION: Chronic lung changes. Cannot exclude a very limited right lower lobe pneumonia. Abdomen/Pelvis CT 01/23/20 18:54 IMPRESSION: There are bilateral groundglass airspace opacities most pronounced within the periphery. These likely reflect an atypical infection, though this can also be seen with interstitial lung processes and other etiologies. There is moderate to severe right hydroureteronephrosis, secondary to a 1 cm calculus at the proximal right ureter, just distal to the ureteropelvic junction. There are calculi seen at the left kidney measuring up to 1 cm in size. Chest CT 01/23/20 19:40 IMPRESSION: There are bilateral groundglass airspace opacities most pronounced within the periphery. These likely reflect an atypical infection, though this can also be seen with interstitial lung processes and other etiologies. There is moderate to severe right hydroureteronephrosis, secondary to a 1 cm calculus at the proximal right ureter, just distal to the ureteropelvic junction. There are calculi seen at the left kidney measuring up to 1 cm in size. Assessment and Plan - Diagnosis (1) Pneumonia due to COVID-19 virus Is this a current diagnosis for this admission?: Yes Plan: COVID positive, D-dimer, ferritin, CRP, LDH are all elevated. CT chest shows peripheral groundglass opacities. Full dose Lovenox. Supplemental oxygen as needed maintain saturations greater than 89%. Has required increased support; improved with Oxymizer, however, requiring increased liters per minute. Discussed with respiratory therapy; recommending high flow nasal cannula.. Scheduled and as needed nebulizer treatments. IV dexamethasone Azithromycin as below. IV Remdesivir Zinc, vitamin D, vitamin C, and melatonin supplementation. Encourage pulmonary toilet. Analgesics as needed for pleuritic chest pain. Isolation precautions. FULL CODE Patient and have decline convalescent serum. (2) Multifocal pneumonia Is this a current diagnosis for this admission?: Yes Plan: Secondary to SARS-COV-2 blood cultures negative at 48 hours. Sputum cultures pending; not yet obtained. COVID positive. Patient is provided supplemental oxygen as needed maintain saturations greater than 89%. Patient is empirically placed on IV azithromycin and Rocephin. Discontinuing Rocephin; received 3 doses. We will plan on completing a full 5-day course of azithromycin. Remaining evaluation management as above. (3) Acute respiratory failure with hypoxia Is this a current diagnosis for this admission?: Yes Plan: Secondary #1 and 2. Management as above. (4) Diabetes mellitus type 2 in nonobese Is this a current diagnosis for this admission?: Yes Plan: A1C 10.2% Holding oral medications while admitted. Patient is placed on a consistent carb diet. Start Lantus 6 units nightly. Glucose is elevated, in part, due to steroid use. Accu-Cheks before meals and at bedtime with Humalog for sliding scale coverage. Hypoglycemia protocol in place. Registered dietitian special educator consulted. (5) Hypertension Qualifiers: Hypertension type: essential hypertension Qualified Code(s): I10 - Essential (primary) hypertension Is this a current diagnosis for this admission?: Yes Plan: Adequately controlled at present. Continue home dose lisinopril. IV hydralazine as needed for blood pressure control. Cardiac diet (6) Ureteral stone with hydronephrosis Is this a current diagnosis for this admission?: Yes Plan: CT revealed moderate to severe right hydroureteronephrosis secondary to a 1 cm calculus. Per patient and family, they have been aware of the stone for multiple years. Last CT imaging done at [facility]. Have requested prior imaging for comparison on hydronephrosis. Per ED documentation and H&P, the ED provider spoke with urology and were told that this could be managed as an outpatient following treatment for his acute respiratory failure. We will continue gentle IV fluid hydration. Analgesics as needed. Start Flomax; although clearly this will not be sufficient for a 1 cm stone but may assist with any small sediment needing to pass. Strict I&O's. Trend chemistries to monitor for worsening renal function. Renal function continues to improve. Have requested most recent renal u/s and CT imagining from [facility] (Patient's believes CT was done there within the last year). Upon receipt of prior images, may need to re-consult urology services. (7) Coronary artery disease Qualifiers: Coronary Disease-Associated Artery/Lesion type: [place] artery [place] vs. transplanted heart: [place] heart Associated angina: without angina Qualified Code(s): I25.10 - Atherosclerotic heart disease of [place] coronary artery without angina pectoris Is this a current diagnosis for this admission?: Yes Plan: No active chest pain. Currently on full dose Lovenox related to elevated d-dimer in setting of COVID- 19. Daily statin therapy. Cardiac diet. (8) Person under investigation for COVID-19 Is this a current diagnosis for this admission?: Yes Plan: COVID testing positive. Remaining management as above. - Time Time Spent with patient: 25-34 minutes Medications reviewed and adjusted accordingly: Yes Anticipated Discharge Disposition: Home, Self Care Anticipated Discharge Timeframe: Undetermined
[2020-01-26] MEDS: TAMSULOSIN HCL 0.4 MG CAP.SR.24H PO SCH (17:24)
[2020-01-26] MEDS: ATORVASTATIN CALCIUM 20 MG TABLET PO SCH (21:34)
[2020-01-26] MEDS ORDERED: INSULIN GLARGINE,HUM.REC.ANLOG 1,000 UNIT/10 ML VIAL (PYX) SUBCUT ONE (21:38)
[2020-01-26] MEDS: INSULIN GLARGINE,HUM.REC.ANLOG 1,000 UNIT/10 ML VIAL SUBCUT SCH (21:40)
[2020-01-26] MEDS: AZITHROMYCIN 500 MG in DEXTROSE 5%-WATER 250 ML IV SCH (21:42)
[2020-01-27] MEDS: ALBUTEROL SULFATE 0.083% NEB 2.5 MG/3 ML AMPUL NEB SCH ×4 (02:13→20:49)
[2020-01-27] MEDS: DEXAMETHASONE SOD PHOSPHATE INJ 4 MG/1 ML VIAL IV SCH ×3 (05:11→22:07)
[2020-01-27] MEDS ORDERED: INFLUENZA QUAD (6MOS+) 2020-21 VAC 0.5 ML SYR IM ONE (08:00)
[2020-01-27 09:31] LABS: APPEARANCE,URINE CLEAR; BILIRUBIN,URINE NEGATIVE (NEGATIVE); COLOR,URINE YELLOW; GLUCOSE, URINE 150 mg/dL (NEGATIVE); KETONES,URINE NEGATIVE (NEGATIVE); LEUKOCYTE ESTERASE,URINE NEGATIVE (NEGATIVE); NITRITE,URINE NEGATIVE (NEGATIVE); PROTEIN,URINE 30 mg/dL (NEGATIVE); URINE SPECIFIC GRAVITY 1.017; UROBILINOGEN,URINE NEGATIVE mg/dL (<2.0)
[2020-01-27] MEDS: LISINOPRIL 10 MG TABLET PO SCH (09:46)
[2020-01-27] MEDS: FAMOTIDINE 20 MG TABLET PO SCH ×2 (09:46→22:11)
[2020-01-27] MEDS: INSULIN REG, HUMAN 100 UNIT/ML 3 ML VIAL (PYX) SUBCUT SCH ×4 (09:46→22:07)
[2020-01-27] MEDS: DOCUSATE SODIUM 100 MG CAPSULE PO SCH ×2 (09:46→17:03)
[2020-01-27] MEDS: REMDESIVIR (EUA) 100 MG in NORMAL SALINE 250 ML IV SCH (09:46)
[2020-01-27] MEDS: ENOXAPARIN SODIUM INJ 80 MG/0.8 ML DISP.SYRIN SUBCUT SCH ×2 (09:47→22:08)
[2020-01-27] MEDS: NORMAL SALINE 1000 ML 1,000 ML IV PRN (16:49)
[2020-01-27] MEDS: TAMSULOSIN HCL 0.4 MG CAP.SR.24H PO SCH (17:03)
--- NOTE | 2020-01-27 17:54 | PDOC PROGRESS REPORT ---
Subjective Progress Note for:: 01/27/20 Subjective:: Patient was seen on afternoon rounds. Patient is found resting in bed, comfortably, on supplemental oxygen via oxymizer at 8 L/min; did use HFNC overnight and throughout most of the day. He is not home O2 dependent. Appears well today; no accessory muscle use noted. He does deny fever, chills, palpitations, abdominal pain, nausea, vomiting and diarrhea. Continues to have nonproductive cough with associated pleuritic chest discomfort. Otherwise, states he is feeling better. Afebrile >48 hours. No questions or concerns today. No concerns per nursing. Reason For Visit: MULTIFOCAL PNEUMONIA,ACUTE RESPIRATORY FAILURE Physical Exam Vital Signs: Temp Pulse Resp BP Pulse Ox 97.9 F 78 18 147/84 H 99 01/27/20 11:16 01/27/20 14:38 01/27/20 14:38 01/27/20 11:16 01/27/20 16:04 Intake & Output 01/26/20 01/27/20 01/28/20 06:59 06:59 06:59 Intake Total 1250 330 750 Output Total 1350 Balance 1250 -1020 750 Weight 65.2 kg 68.8 kg General appearance: PRESENT: no acute distress, cooperative, well-developed, well-nourished Head exam: PRESENT: atraumatic, normocephalic Eye exam: PRESENT: conjunctiva pink, EOMI, PERRLA. ABSENT: scleral icterus Mouth exam: PRESENT: moist, tongue midline Respiratory exam: PRESENT: chest wall tenderness - Pleuritic chest pain with deep inspiration and cough, clear to auscultation randy, decreased breath sounds, symmetrical, unlabored, other - Supplemental oxygen by Oxymizer. ABSENT: rales, rhonchi, wheezes Cardiovascular exam: PRESENT: RRR. ABSENT: diastolic murmur, rubs, systolic murmur Pulses: PRESENT: normal dorsalis pedis pul Vascular exam: PRESENT: normal capillary refill Extremities exam: PRESENT: full ROM. ABSENT: calf tenderness, clubbing, pedal edema Musculoskeletal exam: PRESENT: ambulatory Neurological exam: PRESENT: alert, awake, oriented to person, oriented to place, oriented to time, oriented to situation, CN II-XII grossly intact. ABSENT: motor sensory deficit Psychiatric exam: PRESENT: appropriate affect, normal mood. ABSENT: homicidal ideation, suicidal ideation Skin exam: PRESENT: dry, intact, warm. ABSENT: cyanosis, rash Results Laboratory Results: 01/26/20 07:07 01/26/20 07:07 01/27/20 08:30 Urine Color YELLOW Urine Appearance CLEAR Urine pH 5.0 Ur Specific [place] 1.017 Urine Protein 30 H Urine Glucose (UA) 150 H Urine Ketones NEGATIVE Urine Blood SMALL H Urine Nitrite NEGATIVE Ur Leukocyte Esterase NEGATIVE Urine WBC (Auto) 4 Urine RBC (Auto) 5 Impressions: Chest X-Ray 01/23/20 18:26 IMPRESSION: Chronic lung changes. Cannot exclude a very limited right lower lobe pneumonia. Abdomen/Pelvis CT 01/23/20 18:54 IMPRESSION: There are bilateral groundglass airspace opacities most pronounced within the periphery. These likely reflect an atypical infection, though this can also be seen with interstitial lung processes and other etiologies. There is moderate to severe right hydroureteronephrosis, secondary to a 1 cm calculus at the proximal right ureter, just distal to the ureteropelvic junction. There are calculi seen at the left kidney measuring up to 1 [address] in size. Chest CT 01/23/20 19:40 IMPRESSION: There are bilateral groundglass airspace opacities most pronounced within the periphery. These likely reflect an atypical infection, though this can also be seen with interstitial lung processes and other etiologies. There is moderate to severe right hydroureteronephrosis, secondary to a 1 cm calculus at the proximal right ureter, just distal to the ureteropelvic junction. There are calculi seen at the left kidney measuring up to 1 cm in size. Assessment and Plan - Diagnosis (1) Pneumonia due to COVID-19 virus Is this a current diagnosis for this admission?: Yes Plan: Cautiously optimistic today; patient appears improved. COVID positive D-dimer, ferritin, CRP, LDH are all elevated. CT chest shows peripheral groundglass opacities. Will rechec d. dimer tomorrow; may be able to d/c Lovenox. Full dose Lovenox. Supplemental oxygen as needed maintain saturations greater than 89%. Currnetly on Oxymizer. PRN HFNC Scheduled and as needed nebulizer treatments. IV dexamethasone Azithromycin as below. IV Remdesivir Zinc, vitamin D, vitamin C, and melatonin supplementation. Encourage pulmonary toilet. Analgesics as needed for pleuritic chest pain. Isolation precautions. FULL CODE Patient and have decline convalescent serum. (2) Multifocal pneumonia Is this a current diagnosis for this admission?: Yes Plan: Secondary to SARS-COV-2 blood cultures negative at 72 hours. Sputum cultures pending; not yet obtained. COVID positive. Patient is provided supplemental oxygen as needed maintain saturations greater than 89%. Patient is empirically placed on IV azithromycin and Rocephin. Discontinuing Rocephin; received 3 doses. We will plan on completing a full 5-day course of azithromycin. Remaining evaluation management as above. (3) Acute respiratory failure with hypoxia Is this a current diagnosis for this admission?: Yes Plan: Secondary #1 and 2. Management as above. (4) Diabetes mellitus type 2 in nonobese Is this a current diagnosis for this admission?: Yes Plan: A1C 10.2% Holding oral medications while admitted. Patient is placed on a consistent carb diet. Start Lantus 6 units nightly. Glucose is elevated, in part, due to steroid use. Accu-Cheks before meals and at bedtime with Humalog for sliding scale coverage. Hypoglycemia protocol in place. Registered dietitian clinical document improvement educator consulted. (5) Hypertension Qualifiers: Hypertension type: essential hypertension Qualified Code(s): I10 - Essential (primary) hypertension Is this a current diagnosis for this admission?: Yes Plan: Adequately controlled at present. Continue home dose lisinopril. IV hydralazine as needed for blood pressure control. Cardiac diet (6) Ureteral stone with hydronephrosis Is this a current diagnosis for this admission?: Yes Plan: CT revealed moderate to severe right hydroureteronephrosis secondary to a 1 cm calculus. Per patient and family, they have been aware of the stone for multiple years. Last CT imaging done at [facility]. Have requested prior imaging for comparison on hydronephrosis. Per ED documentation and H&P, the ED provider spoke with urology and were told that this could be managed as an outpatient following treatment for his acute respiratory failure. We will continue gentle IV fluid hydration. Analgesics as needed. Start Flomax; although clearly this will not be sufficient for a 1 cm stone but may assist with any small sediment needing to pass. Strict I&O's. Trend chemistries to monitor for worsening renal function. Renal function continues to improve. Have requested most recent renal u/s and CT imagining from [facility] (Patient's believes CT was done there within the last year). Upon receipt of prior images, may need to re-consult urology services. (7) Coronary artery disease Qualifiers: Coronary Disease-Associated Artery/Lesion type: [place] artery [place] vs. transplanted heart: [place] heart Associated angina: without angina Qualified Code(s): I25.10 - Atherosclerotic heart disease of [place] coronary artery without angina pectoris Is this a current diagnosis for this admission?: Yes Plan: No active chest pain. Currently on full dose Lovenox related to elevated d-dimer in setting of COVID- 19. Daily statin therapy. Cardiac diet. (8) Person under investigation for COVID-19 Is this a current diagnosis for this admission?: Yes Plan: COVID testing positive. Remaining management as above. - Time Time Spent with patient: 25-34 minutes Medications reviewed and adjusted accordingly: Yes Anticipated Discharge Disposition: Home, Self Care Anticipated Discharge Timeframe: undetermined
[2020-01-27] MEDS: INSULIN GLARGINE,HUM.REC.ANLOG 1,000 UNIT/10 ML VIAL SUBCUT SCH (22:07)
[2020-01-27] MEDS: ATORVASTATIN CALCIUM 20 MG TABLET PO SCH (22:11)
[2020-01-27] MEDS: AZITHROMYCIN 500 MG in DEXTROSE 5%-WATER 250 ML IV SCH (22:15)
[2020-01-28] MEDS: ALBUTEROL SULFATE 0.083% NEB 2.5 MG/3 ML AMPUL NEB SCH ×4 (02:18→21:01)
[2020-01-28] MEDS: DEXAMETHASONE SOD PHOSPHATE INJ 4 MG/1 ML VIAL IV SCH ×3 (06:03→21:38)
[2020-01-28] MEDS: NORMAL SALINE 1000 ML 1,000 ML IV PRN (06:07)
[2020-01-28 06:53] LABS: HEMATOCRIT 38.2 % (37.9-51.0); HEMOGLOBIN 13.3 g/dL (13.5-17.0); MEAN CORPUSCULAR HEMOGLOBIN 31.1 pg (27.0-33.4); MEAN CORPUSCULAR HGB CONC 34.9 g/dL (32.0-36.0); MEAN CORPUSCULAR VOLUME 89 fl (80-97); PLATELET COUNT 367 10^3/uL (150-450); RED BLOOD COUNT 4.28 10^6/uL (4.35-5.55); RED CELL DISTRIBUTION WIDTH 14.8 % (11.5-14.0); WHITE BLOOD COUNT 8.9 10^3/uL (4.0-10.5)
[2020-01-28 07:02] LABS: ANION GAP 9 (5-19); BLOOD UREA NITROGEN 26 mg/dL (7-20); CALCIUM 8.5 mg/dL (8.4-10.2); CARBON DIOXIDE 25 mmol/L (22-30); CHLORIDE 104 mmol/L (98-107); GLUCOSE 209 mg/dL (75-110); POTASSIUM 4.3 mmol/L (3.6-5.0)
[2020-01-28] MEDS: INSULIN REG, HUMAN 100 UNIT/ML 3 ML VIAL (PYX) SUBCUT SCH ×4 (08:20→21:38)
[2020-01-28] MEDS: FAMOTIDINE 20 MG TABLET PO SCH ×2 (10:39→21:38)
[2020-01-28] MEDS: DOCUSATE SODIUM 100 MG CAPSULE PO SCH ×2 (10:39→17:11)
[2020-01-28] MEDS: ENOXAPARIN SODIUM INJ 80 MG/0.8 ML DISP.SYRIN SUBCUT SCH (10:40)
[2020-01-28] MEDS: LISINOPRIL 10 MG TABLET PO SCH (10:40)
[2020-01-28] MEDS: REMDESIVIR (EUA) 100 MG in NORMAL SALINE 250 ML IV SCH (10:40)
[2020-01-28] MEDS: GUAIFENESIN SYRP 200 MG/10 ML UDC PO PRN ×2 (10:47→17:22)
--- NOTE | 2020-01-28 16:44 | PDOC PROGRESS REPORT ---
Subjective Progress Note for:: 01/28/20 Subjective:: Patient was seen on afternoon rounds. Patient is found resting in bed, comfortably, on supplemental oxygen via oxymizer at 10 L/min; it appears that on 8lpm SpO2 was ~91%. He is returned to 8lpm and maintained SpO2 in the mid 90s. He is not home O2 dependent. Appears well today, though fatigued. Admits to being homesick. He denies fever, chills, palpitations, abdominal pain, nausea, vomiting and diarrhea. Continues to have nonproductive cough with associated pleuritic chest discomfort; slightly improved. Afebrile >48 hours. No questions or concerns today. No concerns per nursing. Reason For Visit: MULTIFOCAL PNEUMONIA,ACUTE RESPIRATORY FAILURE Physical Exam Vital Signs: Temp Pulse Resp BP Pulse Ox 98.1 F 85 19 152/78 H 94 01/28/20 15:56 01/28/20 15:56 01/28/20 15:56 01/28/20 15:56 01/28/20 15:56 Intake & Output 01/27/20 01/28/20 01/29/20 06:59 06:59 06:59 Intake Total 330 1665 980 Output Total 1350 400 Balance -1020 1265 980 Weight 68.8 kg 68.8 kg General appearance: PRESENT: no acute distress, well-developed, well-nourished Head exam: PRESENT: atraumatic, normocephalic Eye exam: PRESENT: conjunctiva pink, EOMI, PERRLA. ABSENT: scleral icterus Mouth exam: PRESENT: moist, tongue midline Respiratory exam: PRESENT: clear to auscultation randy, symmetrical, unlabored, other - Supplemental oxygen by Oxymizer. ABSENT: rales, rhonchi, wheezes Cardiovascular exam: PRESENT: RRR. ABSENT: diastolic murmur, rubs, systolic murmur Pulses: PRESENT: normal dorsalis pedis pul Vascular exam: PRESENT: normal capillary refill Extremities exam: PRESENT: full ROM. ABSENT: calf tenderness, clubbing, pedal edema Musculoskeletal exam: PRESENT: ambulatory Neurological exam: PRESENT: alert, awake, oriented to person, oriented to place, oriented to time, oriented to situation, CN II-XII grossly intact. ABSENT: motor sensory deficit Psychiatric exam: PRESENT: appropriate affect, normal mood. ABSENT: homicidal ideation, suicidal ideation Skin exam: PRESENT: dry, intact, warm. ABSENT: cyanosis, rash Results Laboratory Results: 01/28/20 05:40 01/28/20 05:40 01/28/20 01/28/20 05:40 05:40 WBC 8.9 RBC 4.28 L Hgb 13.3 L Hct 38.2 MCV 89 MCH 31.1 MCHC 34.9 RDW 14.8 H Plt Count 367 Sodium 138.4 Potassium 4.3 Chloride 104 Carbon Dioxide 25 Anion Gap 9 BUN 26 H Creatinine 1.07 Est GFR ( Amer) > 60 Glucose 209 H Calcium 8.5 Impressions: Chest X-Ray 01/23/20 18:26 IMPRESSION: Chronic lung changes. Cannot exclude a very limited right lower lobe pneumonia. Abdomen/Pelvis CT 01/23/20 18:54 IMPRESSION: There are bilateral groundglass airspace opacities most pronounced within the periphery. These likely reflect an atypical infection, though this can also be seen with interstitial lung processes and other etiologies. There is moderate to severe right hydroureteronephrosis, secondary to a 1 cm calculus at the proximal right ureter, just distal to the ureteropelvic junction. There are calculi seen at the left kidney measuring up to 1 cm in size. Chest CT 01/23/20 19:40 IMPRESSION: There are bilateral groundglass airspace opacities most pronounced within the periphery. These likely reflect an atypical infection, though this can also be seen with interstitial lung processes and other etiologies. There is moderate to severe right hydroureteronephrosis, secondary to a 1 cm calculus at the proximal right ureter, just distal to the ureteropelvic junction. There are calculi seen at the left kidney measuring up to 1 cm in size. Assessment and Plan - Diagnosis (1) Pneumonia due to COVID-19 virus Is this a current diagnosis for this admission?: Yes Plan: Cautiously optimistic today; patient appears improved. COVID positive D-dimer trending down Ferritin, CRP, LDH are all elevated. CT chest shows peripheral groundglass opacities. Will rechec d. dimer tomorrow; may be able to d/c Lovenox. Did receive full dose Lovenox; now on DVT prophylaxis dosing. Supplemental oxygen as needed maintain saturations greater than 89%. Currnetly on Oxymizer. PRN HFNC Scheduled and as needed nebulizer treatments. IV dexamethasone Azithromycin Day #4 IV Remdesivir Zinc, vitamin D, vitamin C, and melatonin supplementation. Encourage pulmonary toilet. Analgesics as needed for pleuritic chest pain. Isolation precautions. FULL CODE Patient and have decline convalescent serum. (2) Multifocal pneumonia Is this a current diagnosis for this admission?: Yes Plan: Secondary to SARS-COV-2 blood cultures negative at 4 days. Sputum cultures pending; not yet obtained. COVID positive. Patient is provided supplemental oxygen as needed maintain saturations greater than 89%. Patient is empirically placed on IV azithromycin and Rocephin. Discontinuing Rocephin; received 3 doses. We will plan on completing a full 5-day course of azithromycin. Remaining evaluation management as above. (3) Acute respiratory failure with hypoxia Is this a current diagnosis for this admission?: Yes Plan: Secondary #1 and 2. Management as above. (4) Diabetes mellitus type 2 in nonobese Is this a current diagnosis for this admission?: Yes Plan: A1C 10.2% Holding oral medications while admitted. Patient is placed on a consistent carb diet. Start Lantus 8 units nightly. Glucose is elevated, in part, due to steroid use. Accu-Cheks before meals and at bedtime with Humalog for sliding scale coverage. Hypoglycemia protocol in place. Registered dietitian squilgeer consulted. (5) Hypertension Qualifiers: Hypertension type: essential hypertension Qualified Code(s): I10 - Essential (primary) hypertension Is this a current diagnosis for this admission?: Yes Plan: Adequately controlled at present. Continue home dose lisinopril. IV hydralazine as needed for blood pressure control. Cardiac diet (6) Ureteral stone with hydronephrosis Is this a current diagnosis for this admission?: Yes Plan: CT revealed moderate to severe right hydroureteronephrosis secondary to a 1 cm calculus. Per patient and family, they have been aware of the stone for multiple years. Last CT imaging done at [facility]. Have requested prior imaging for comparison on hydronephrosis. Per ED documentation and H&P, the ED provider spoke with urology and were told that this could be managed as an outpatient following treatment for his acute respiratory failure. We will continue gentle IV fluid hydration. Analgesics as needed. Start Flomax; although clearly this will not be sufficient for a 1 cm stone but may assist with any small sediment needing to pass. Strict I&O's. Trend chemistries to monitor for worsening renal function. Renal function continues to improve. Have requested most recent renal u/s and CT imagining from [facility] (Patient's believes CT was done there within the last year). Upon receipt of prior images, may need to re-consult urology services. Still have not received records. (7) Coronary artery disease Qualifiers: Coronary Disease-Associated Artery/Lesion type: [place] artery [place] vs. transplanted heart: [place] heart Associated angina: without angina Qualified Code(s): I25.10 - Atherosclerotic heart disease of [place] coronary artery without angina pectoris Is this a current diagnosis for this admission?: Yes Plan: No active chest pain. Currently on full dose Lovenox related to elevated d-dimer in setting of COVID- 19. Daily statin therapy. Cardiac diet. (8) Person under investigation for COVID-19 Is this a current diagnosis for this admission?: Yes Plan: COVID testing positive. Remaining management as above. - Time Time Spent with patient: 25-34 minutes Medications reviewed and adjusted accordingly: Yes Anticipated Discharge Disposition: Home, Self Care Anticipated Discharge Timeframe: ~3-4 days pending oxygen needs
[2020-01-28] MEDS ORDERED: INSULIN GLARGINE,HUM.REC.ANLOG 1,000 UNIT/10 ML VIAL (PYX) SUBCUT PRN (16:58)
[2020-01-28] MEDS: TAMSULOSIN HCL 0.4 MG CAP.SR.24H PO SCH (17:11)
[2020-01-28] MEDS: ATORVASTATIN CALCIUM 20 MG TABLET PO SCH (21:38)
[2020-01-28] MEDS ORDERED: INSULIN GLARGINE,HUM.REC.ANLOG 1,000 UNIT/10 ML VIAL (PYX) SUBCUT ONE (21:45)
[2020-01-28] MEDS: INSULIN GLARGINE,HUM.REC.ANLOG 1,000 UNIT/10 ML VIAL SUBCUT SCH (21:46)
[2020-01-28] MEDS: AZITHROMYCIN 500 MG in DEXTROSE 5%-WATER 250 ML IV SCH (21:47)
[2020-01-29] MEDS: NORMAL SALINE 1000 ML 1,000 ML IV PRN (01:05)
[2020-01-29] MEDS: ALBUTEROL SULFATE 0.083% NEB 2.5 MG/3 ML AMPUL NEB SCH ×4 (02:41→15:48)
[2020-01-29] MEDS: DEXAMETHASONE SOD PHOSPHATE INJ 4 MG/1 ML VIAL IV SCH ×3 (05:10→21:23)
[2020-01-29] MEDS: INSULIN REG, HUMAN 100 UNIT/ML 3 ML VIAL (PYX) SUBCUT SCH ×4 (08:32→21:26)
[2020-01-29] MEDS: DOCUSATE SODIUM 100 MG CAPSULE PO SCH ×2 (10:41→17:27)
[2020-01-29] MEDS: ENOXAPARIN SODIUM INJ 40 MG/0.4 ML DISP.SYRIN SUBCUT SCH (10:41)
[2020-01-29] MEDS: LISINOPRIL 10 MG TABLET PO SCH (10:41)
[2020-01-29] MEDS: REMDESIVIR (EUA) 100 MG in NORMAL SALINE 250 ML IV SCH (10:41)
[2020-01-29] MEDS: FAMOTIDINE 20 MG TABLET PO SCH ×2 (10:41→21:23)
--- NOTE | 2020-01-29 15:54 | PDOC PROGRESS REPORT ---
Subjective Progress Note for:: 01/29/20 Subjective:: Patient was seen on afternoon rounds. Patient is found resting in bed, comfortably, on supplemental oxygen via oxymizer at 6 L/min; maintaining Sp)2 in the mid 90s. He is not home O2 dependent. He was sleeping, but woke easily. Appears well today, though fatigued. Admits to being homesick. He denies fever, chills, palpitations, abdominal pain, nausea, vomiting and diarrhea. Continues to have nonproductive cough with associated pleuritic chest discomfort; improved. Afebrile >48 hours. No questions or concerns today. No concerns per nursing; notes patient has been tearful. Patients daughter, Luanne, was updated by phone this afternoon. Reason For Visit: MULTIFOCAL PNEUMONIA,ACUTE RESPIRATORY FAILURE Physical Exam Vital Signs: Temp Pulse Resp BP Pulse Ox 98.1 F 79 21 H 152/72 H 95 01/29/20 11:19 01/29/20 11:19 01/29/20 11:19 01/29/20 11:19 01/29/20 11:19 Intake & Output 01/28/20 01/29/20 01/30/20 06:59 06:59 06:59 Intake Total 1665 2923 250 Output Total 400 550 100 Balance 1265 2373 150 Weight 68.8 kg 68.8 kg General appearance: PRESENT: no acute distress, cooperative, well-developed, well-nourished Head exam: PRESENT: atraumatic, normocephalic Eye exam: PRESENT: conjunctiva pink, EOMI, PERRLA. ABSENT: scleral icterus Mouth exam: PRESENT: moist, tongue midline Respiratory exam: PRESENT: clear to auscultation randy, symmetrical, unlabored. ABSENT: rales, rhonchi, wheezes Cardiovascular exam: PRESENT: RRR, +S1, +S2. ABSENT: diastolic murmur, rubs, systolic murmur Vascular exam: PRESENT: normal capillary refill Extremities exam: PRESENT: full ROM. ABSENT: calf tenderness, clubbing, pedal edema Musculoskeletal exam: PRESENT: ambulatory Neurological exam: PRESENT: alert, awake, oriented to person, oriented to place, oriented to time, oriented to situation, CN II-XII grossly intact. ABSENT: motor sensory deficit Psychiatric exam: PRESENT: appropriate affect, normal mood. ABSENT: homicidal ideation, suicidal ideation Skin exam: PRESENT: dry, intact, warm. ABSENT: cyanosis, rash Results Laboratory Results: 01/28/20 05:40 01/28/20 05:40 01/23/20 20:39 Blood Blood Culture - Final NO GROWTH IN 5 DAYS 01/23/20 20:15 Blood Blood Culture - Final NO GROWTH IN 5 DAYS Impressions: Chest X-Ray 01/23/20 18:26 IMPRESSION: Chronic lung changes. Cannot exclude a very limited right lower lobe pneumonia. Abdomen/Pelvis CT 01/23/20 18:54 IMPRESSION: There are bilateral groundglass airspace opacities most pronounced within the periphery. These likely reflect an atypical infection, though this can also be seen with interstitial lung processes and other etiologies. There is moderate to severe right hydroureteronephrosis, secondary to a 1 cm calculus at the proximal right ureter, just distal to the ureteropelvic junction. There are calculi seen at the left kidney measuring up to 1 [address] size. Chest CT 01/23/20 19:40 IMPRESSION: There are bilateral groundglass airspace opacities most pronounced within the periphery. These likely reflect an atypical infection, though this can also be seen with interstitial lung processes and other etiologies. There is moderate to severe right hydroureteronephrosis, secondary to a 1 cm calculus at the proximal right ureter, just distal to the ureteropelvic junction. There are calculi seen at the left kidney measuring up to 1 cm in size. Assessment and Plan - Diagnosis (1) Pneumonia due to COVID-19 virus Is this a current diagnosis for this admission?: Yes Plan: Optimistic today; patient continues to improve. Now on oxymizer at 4lpm and ma intaining SpO2 in low to mid 90s. COVID positive D-dimer trending down Ferritin, CRP, LDH elevated. CT chest shows peripheral groundglass opacities. Recheck d. dimer tomorrow; may be able to d/c Lovenox. Did receive full dose Lovenox; now on DVT prophylaxis dosing. Supplemental oxygen as needed maintain saturations greater than 89%. Currnetly on Oxymizer. PRN HFNC Scheduled and as needed nebulizer treatments. IV dexamethasone; will begin weaning Completed 5 day course of Azithromycin Completed 5 day course of Remdesivir Zinc, vitamin D, vitamin C, and melatonin supplementation. Encourage pulmonary toilet. Isolation precautions. FULL CODE Patient and have decline convalescent serum. (2) Multifocal pneumonia Is this a current diagnosis for this admission?: Yes Plan: Secondary to SARS-COV-2 blood cultures negative at 4 days. Sputum cultures pending; not yet obtained. COVID positive. Patient is provided supplemental oxygen as needed maintain saturations greater than 89%. Patient is empirically placed on IV azithromycin and Rocephin. Discontinuing Rocephin; received 3 doses. We will plan on completing a full 5-day course of azithromycin. Remaining evaluation management as above. (3) Acute respiratory failure with hypoxia Is this a current diagnosis for this admission?: Yes Plan: Secondary #1 and 2. Management as above. (4) Diabetes mellitus type 2 in nonobese Is this a current diagnosis for this admission?: Yes Plan: A1C 10.2% Holding oral medications while admitted. Patient is placed on a consistent carb diet. Start Lantus 8 units nightly. Glucose is elevated, in part, due to steroid use. Accu-Cheks before meals and at bedtime with Humalog for sliding scale coverage. Hypoglycemia protocol in place. Registered dietitian telehealth nurse educator consulted. (5) Hypertension Qualifiers: Hypertension type: essential hypertension Qualified Code(s): I10 - Essential (primary) hypertension Is this a current diagnosis for this admission?: Yes Plan: Adequately controlled at present. Continue home dose lisinopril. IV hydralazine as needed for blood pressure control. Cardiac diet (6) Ureteral stone with hydronephrosis Is this a current diagnosis for this admission?: Yes Plan: CT revealed moderate to severe right hydroureteronephrosis secondary to a 1 cm calculus. Per patient and family, they have been aware of the stone for multiple years. Last CT imaging done at [facility]. Have requested prior imaging for comparison on hydronephrosis. Per ED documentation and H&P, the ED provider spoke with urology and were told that this could be managed as an outpatient following treatment for his acute respiratory failure. We will continue gentle IV fluid hydration. Analgesics as needed. Start Flomax; although clearly this will not be sufficient for a 1 cm stone but may assist with any small sediment needing to pass. Strict I&O's. Trend chemistries to monitor for worsening renal function. Renal function continues to improve. Have requested most recent renal u/s and CT imagining from [facility] (Patient's believes CT was done there within the last year). Upon receipt of prior images, may need to re-consult urology services. Still have not received records. (7) Coronary artery disease Qualifiers: Coronary Disease-Associated Artery/Lesion type: [place] artery [place] vs. transplanted heart: [place] heart Associated angina: without angina Qualified Code(s): I25.10 - Atherosclerotic heart disease of [place] coronary artery without angina pectoris Is this a current diagnosis for this admission?: Yes Plan: No active chest pain. Currently on full dose Lovenox related to elevated d-dimer in setting of COVID- 19. Daily statin therapy. Cardiac diet. (8) Person under investigation for COVID-19 Is this a current diagnosis for this admission?: Yes Plan: COVID testing positive. Remaining management as above. - Time Time Spent with patient: 35 or more minutes Medications reviewed and adjusted accordingly: Yes Anticipated Discharge Disposition: Home, Self Care Anticipated Discharge Timeframe: ~3-4 days pending oxygen needs.
[2020-01-29] MEDS: TAMSULOSIN HCL 0.4 MG CAP.SR.24H PO SCH (17:27)
[2020-01-29] MEDS: ATORVASTATIN CALCIUM 20 MG TABLET PO SCH (21:23)
[2020-01-29] MEDS: INSULIN GLARGINE,HUM.REC.ANLOG 1,000 UNIT/10 ML VIAL SUBCUT SCH (21:28)
[2020-01-30] MEDS: GUAIFENESIN SYRP 200 MG/10 ML UDC PO PRN ×2 (00:24→06:38)
[2020-01-30] MEDS: ALBUTEROL SULFATE 0.083% NEB 2.5 MG/3 ML AMPUL NEB SCH ×4 (00:43→19:44)
[2020-01-30 07:06] LABS: APPEARANCE,URINE CLEAR; BILIRUBIN,URINE NEGATIVE (NEGATIVE); COLOR,URINE YELLOW; GLUCOSE, URINE >=500 mg/dL (NEGATIVE); KETONES,URINE NEGATIVE (NEGATIVE); LEUKOCYTE ESTERASE,URINE NEGATIVE (NEGATIVE); NITRITE,URINE NEGATIVE (NEGATIVE); PROTEIN,URINE 30 mg/dL (NEGATIVE); URINE SPECIFIC GRAVITY 1.014; UROBILINOGEN,URINE NEGATIVE mg/dL (<2.0)
[2020-01-30] MEDS: INSULIN REG, HUMAN 100 UNIT/ML 3 ML VIAL (PYX) SUBCUT SCH ×4 (08:22→22:52)
[2020-01-30] MEDS: DOCUSATE SODIUM 100 MG CAPSULE PO SCH ×2 (10:18→18:07)
[2020-01-30] MEDS: ENOXAPARIN SODIUM INJ 40 MG/0.4 ML DISP.SYRIN SUBCUT SCH (10:18)
[2020-01-30] MEDS: LISINOPRIL 10 MG TABLET PO SCH (10:18)
[2020-01-30] MEDS: FAMOTIDINE 20 MG TABLET PO SCH ×2 (10:18→22:51)
[2020-01-30] MEDS: DEXAMETHASONE SOD PHOSPHATE INJ 4 MG/1 ML VIAL IV SCH ×2 (10:18→22:52)
--- NOTE | 2020-01-30 14:38 | PDOC PROGRESS REPORT ---
Subjective Progress Note for:: 01/30/20 Subjective:: Patient was seen on morning rounds. Patient is found resting in bed, comfortably, on supplemental oxygen via standard nasal cannula at 2 L/min. He is maintaining oxygen saturations in the mid to high 90s while sleeping.. He is not home O2 dependent. He was sleeping soundly; I did not make multiple attempts to wake him. Nursing reports the patient has been ambulatory in his room without difficulty earlier this morning and appears well and in better spirits today. Afebrile >48 hours. No concerns per nursing; asked nursing to inform patient that I stopped by and would be more than happy to come back and visit with the patient when he wakes up later today. Reason For Visit: MULTIFOCAL PNEUMONIA,ACUTE RESPIRATORY FAILURE Physical Exam Vital Signs: Temp Pulse Resp BP Pulse Ox 98.0 F 88 18 137/81 H 95 01/30/20 12:15 01/30/20 12:15 01/30/20 12:15 01/30/20 12:15 01/30/20 12:15 Intake & Output 01/29/20 01/30/20 01/31/20 06:59 06:59 06:59 Intake Total 2923 1758 Output Total 550 450 Balance 2373 1308 Weight 68.8 kg 66.9 kg General appearance: PRESENT: no acute distress, well-developed, well-nourished Head exam: PRESENT: atraumatic, normocephalic Mouth exam: PRESENT: moist, tongue midline Respiratory exam: PRESENT: clear to auscultation randy, symmetrical, unlabored. ABSENT: rales, rhonchi, wheezes Cardiovascular exam: PRESENT: RRR. ABSENT: diastolic murmur, rubs, systolic murmur Vascular exam: PRESENT: normal capillary refill Neurological exam: PRESENT: CN II-XII grossly intact, other - sleeping soundly Skin exam: PRESENT: dry, intact, warm. ABSENT: cyanosis, rash Results Laboratory Results: 01/28/20 05:40 01/28/20 05:40 01/30/20 06:35 Urine Color YELLOW Urine Appearance CLEAR Urine pH 6.0 Ur Specific [place] 1.014 Urine Protein 30 H Urine Glucose (UA) >=500 H Urine Ketones NEGATIVE Urine Blood NEGATIVE Urine Nitrite NEGATIVE Ur Leukocyte Esterase NEGATIVE Urine WBC (Auto) 3 Urine RBC (Auto) 1 Impressions: Chest X-Ray 01/23/20 18:26 IMPRESSION: Chronic lung changes. Cannot exclude a very limited right lower lobe pneumonia. Abdomen/Pelvis CT 01/23/20 18:54 IMPRESSION: There are bilateral groundglass airspace opacities most pronounced within the periphery. These likely reflect an atypical infection, though this can also be seen with interstitial lung processes and other etiologies. There is moderate to severe right hydroureteronephrosis, secondary to a 1 cm calculus at the proximal right ureter, just distal to the ureteropelvic junction. There are calculi seen at the left kidney measuring up to 1 [address] size[address] CT 01/23/20 19:40 IMPRESSION: There are bilateral groundglass airspace opacities most pronounced within the periphery. These likely reflect an atypical infection, though this can also be seen with interstitial lung processes and other etiologies. There is moderate to severe right hydroureteronephrosis, secondary to a 1 cm calculus at the proximal right ureter, just distal to the ureteropelvic junction. There are calculi seen at the left kidney measuring up to 1 cm in size. Assessment and Plan - Diagnosis (1) Pneumonia due to COVID-19 virus Is this a current diagnosis for this admission?: Yes Plan: Optimistic today; patient continues to improve. Now standard NC at 2lpm and maintaining SpO2 in mid-high 90s. COVID positive D-dimer trending down Ferritin, CRP, LDH elevated. CT chest shows peripheral groundglass opacities. Recheck d. dimer tomorrow; may be able to d/c Lovenox. Did receive full dose Lovenox; now on DVT prophylaxis dosing. Supplemental oxygen as needed maintain saturations greater than 89%. Scheduled and as needed nebulizer treatments. IV dexamethasone; will transition to prednisone Completed 5 day course of Azithromycin Completed 5 day course of Remdesivir Zinc, vitamin D, vitamin C, and melatonin supplementation. Encourage pulmonary toilet. Isolation precautions. FULL CODE Patient and have decline convalescent serum. (2) Multifocal pneumonia Is this a current diagnosis for this admission?: Yes Plan: Secondary to SARS-COV-2 Blood cultures negative at 5 days. Sputum cultures pending; not yet obtained. No sputum production. COVID positive. Patient is provided supplemental oxygen as needed maintain saturations greater than 89%. Patient received a 3-day course of IV Rocephin and 5-day course of azithromycin. Remaining evaluation management as above. (3) Acute respiratory failure with hypoxia Is this a current diagnosis for this admission?: Yes Plan: Secondary #1 and 2. Management as above. (4) Diabetes mellitus type 2 in nonobese Is this a current diagnosis for this admission?: Yes Plan: A1C 10.2% Holding oral medications while admitted. Patient is placed on a consistent carb diet. Start Lantus 8 units nightly. Glucose is elevated, in part, due to steroid use. Accu-Cheks before meals and at bedtime with Humalog for sliding scale coverage. Hypoglycemia protocol in place. Registered dietitian clinical trial educator consulted. (5) Hypertension Qualifiers: Hypertension type: essential hypertension Qualified Code(s): I10 - Esse ntial (primary) hypertension Is this a current diagnosis for this admission?: Yes Plan: Adequately controlled at present. Continue home dose lisinopril. IV hydralazine as needed for blood pressure control. Cardiac diet (6) Ureteral stone with hydronephrosis Is this a current diagnosis for this admission?: Yes Plan: CT revealed moderate to severe right hydroureteronephrosis secondary to a 1 cm calculus. Per patient and family, they have been aware of the stone for multiple years. Last CT imaging done at [facility]. Have requested prior imaging for comparison on hydronephrosis. Per ED documentation and H&P, the ED provider spoke with urology and were told that this could be managed as an outpatient following treatment for his acute respiratory failure. We will continue gentle IV fluid hydration. Analgesics as needed. Start Flomax; although clearly this will not be sufficient for a 1 cm stone but may assist with any small sediment needing to pass. Strict I&O's. Trend chemistries to monitor for worsening renal function. Renal function continues to improve. Have requested most recent renal u/s and CT imagining from [facility] (Patient's believes CT was done there within the last year). Upon receipt of prior images, may need to re-consult urology services. Still have not received records. (7) Coronary artery disease Qualifiers: Coronary Disease-Associated Artery/Lesion type: [place] artery [place] vs. transplanted heart: [place] heart Associated angina: without angina Qualified Code(s): I25.10 - Atherosclerotic heart disease of [place] coronary artery without angina pectoris Is this a current diagnosis for this admission?: Yes Plan: No active chest pain. Currently on full dose Lovenox related to elevated d-dimer in setting of COVID- 19. Daily statin therapy. Cardiac diet. (8) Person under investigation for COVID-19 Is this a current diagnosis for this admission?: Yes Plan: COVID testing positive. Remaining management as above. - Time Time Spent with patient: 25-34 minutes Medications reviewed and adjusted accordingly: Yes Anticipated Discharge Disposition: Home, Self Care Anticipated Discharge Timeframe: within 24 hours
[2020-01-30] MEDS: TAMSULOSIN HCL 0.4 MG CAP.SR.24H PO SCH (18:07)
[2020-01-30] MEDS: ATORVASTATIN CALCIUM 20 MG TABLET PO SCH (22:51)
[2020-01-30] MEDS: INSULIN GLARGINE,HUM.REC.ANLOG 1,000 UNIT/10 ML VIAL SUBCUT SCH (22:55)
[2020-01-31] MEDS: INSULIN REG, HUMAN 100 UNIT/ML 3 ML VIAL (PYX) SUBCUT SCH ×4 (08:14→21:54)
[2020-01-31] MEDS: ALBUTEROL SULFATE 0.083% NEB 2.5 MG/3 ML AMPUL NEB SCH ×2 (08:48→19:40)
[2020-01-31] MEDS: FAMOTIDINE 20 MG TABLET PO SCH ×2 (09:22→21:55)
[2020-01-31] MEDS: DOCUSATE SODIUM 100 MG CAPSULE PO SCH ×2 (09:22→17:00)
[2020-01-31] MEDS: PREDNISONE 20 MG TABLET PO SCH (09:22)
[2020-01-31] MEDS: LISINOPRIL 10 MG TABLET PO SCH (09:22)
[2020-01-31] MEDS: ENOXAPARIN SODIUM INJ 40 MG/0.4 ML DISP.SYRIN SUBCUT SCH (09:23)
--- NOTE | 2020-01-31 13:37 | PDOC PROGRESS REPORT ---
Subjective Progress Note for:: 01/31/20 Subjective:: Patient is actually resting comfortably. He is sitting at the bedside table washing up. He remains on nasal cannula but is in no distress. Reason For Visit: MULTIFOCAL PNEUMONIA,ACUTE RESPIRATORY FAILURE Physical Exam Vital Signs: Temp Pulse Resp BP Pulse Ox 98.1 F 93 18 120/77 97 01/31/20 12:25 01/31/20 12:25 01/31/20 12:25 01/31/20 12:25 01/31/20 12:25 Intake & Output 01/30/20 01/31/20 02/01/20 06:59 06:59 06:59 Intake Total 1758 360 Output Total 450 475 Balance 1308 -115 Weight 66.9 kg 65.9 kg General appearance: PRESENT: no acute distress, cooperative, well-developed, well-nourished Head exam: PRESENT: atraumatic, normocephalic Eye exam: PRESENT: conjunctiva pink. ABSENT: scleral icterus Ear exam: PRESENT: normal external ear exam. ABSENT: bleeding, drainage Mouth exam: PRESENT: moist, tongue midline Neck exam: ABSENT: carotid bruit, JVD, lymphadenopathy Respiratory exam: PRESENT: clear to auscultation randy, symmetrical, unlabored. ABSENT: prolonged expiratory phas, rales, rhonchi, tachypnea, wheezes Cardiovascular exam: PRESENT: RRR, +S1, +S2. ABSENT: bradycardia, diastolic murmur, irregular rhythm, systolic murmur, tachycardia GI/Abdominal exam: PRESENT: normal bowel sounds, soft. ABSENT: distended, guarding, tenderness Rectal exam: PRESENT: deferred Gentrourinary exam: ABSENT: indwelling catheter Extremities exam: ABSENT: pedal edema Musculoskeletal exam: PRESENT: normal inspection. ABSENT: deformity, dislocation Neurological exam: PRESENT: alert, awake, oriented to person, oriented to place, oriented to situation. ABSENT: altered Psychiatric exam: PRESENT: appropriate affect. ABSENT: agitated, anxious, unus ual affect Focused psych exam: ABSENT: delusional, paranoid, restlessness Skin exam: PRESENT: dry, normal color, warm. ABSENT: rash Results Laboratory Results: 01/28/20 05:40 01/28/20 05:40 Impressions: Chest X-Ray 01/23/20 18:26 IMPRESSION: Chronic lung changes. Cannot exclude a very limited right lower lobe pneumonia. Abdomen/Pelvis CT 01/23/20 18:54 IMPRESSION: There are bilateral groundglass airspace opacities most pronounced within the periphery. These likely reflect an atypical infection, though this can also be seen with interstitial lung processes and other etiologies. There is moderate to severe right hydroureteronephrosis, secondary to a 1 cm calculus at the proximal right ureter, just distal to the ureteropelvic junction. There are calculi seen at the left kidney measuring up to 1 cm in size. Chest CT 01/23/20 19:40 IMPRESSION: There are bilateral groundglass airspace opacities most pronounced within the periphery. These likely reflect an atypical infection, though this can also be seen with interstitial lung processes and other etiologies. There is moderate to severe right hydroureteronephrosis, secondary to a 1 cm calculus at the proximal right ureter, just distal to the ureteropelvic junction. There are calculi seen at the left kidney measuring up to 1 cm in size. Assessment and Plan - Diagnosis (1) Pneumonia due to COVID-19 virus Is this a current diagnosis for this admission?: Yes Plan: Optimistic today; patient continues to improve. Now standard NC at 2lpm and calvin ntaining SpO2 in mid-high 90s. COVID positive D-dimer trending down Ferritin, CRP, LDH elevated. CT chest shows peripheral groundglass opacities. Recheck d. dimer tomorrow; may be able to d/c Lovenox. Did receive full dose Lovenox; now on DVT prophylaxis dosing. Supplemental oxygen as needed maintain saturations greater than 89%. Scheduled and as needed nebulizer treatments. IV dexamethasone; will transition to prednisone Completed 5 day course of Azithromycin Completed 5 day course of Remdesivir Zinc, vitamin D, vitamin C, and melatonin supplementation. Encourage pulmonary toilet. Isolation precautions. FULL CODE Patient and have decline convalescent serum. 01/31/2020-patient is comfortable. Medications completed as above. Attempt to taper to room air. (2) Multifocal pneumonia Is this a current diagnosis for this admission?: Yes Plan: Secondary to SARS-COV-2 Blood cultures negative at 5 days. Sputum cultures pending; not yet obtained. No sputum production. COVID positive. Patient is provided supplemental oxygen as needed maintain saturations greater than 89%. Patient received a 3-day course of IV Rocephin and 5-day course of azithromycin. Remaining evaluation management as above. 01/31/2020-as above (3) Acute respiratory failure with hypoxia Is this a current diagnosis for this admission?: Yes (4) Hyperglycemia due to type 2 diabetes mellitus Qualifiers: Diabetes mellitus fpc insulin use: with bilingual speech language pathologist use Qualified Code(s): E11.65 - Type 2 diabetes mellitus with hyperglycemia; Z79.4 - mechanical engineering specialist (current) use of insulin Is this a current diagnosis for this admission?: Yes Plan: 01/31/2020-variant same hyperglycemia. Steroids are contributing. Will resume pioglitazone and glimepiride in addition to long-acting insulin and sliding scale coverage. Continue to monitor Accu-Cheks. (5) Hypertension Qualifiers: Hypertension type: essential hypertension Qualified Code(s): I10 - Essential (primary) hypertension Is this a current diagnosis for this admission?: Yes Plan: Adequately controlled at present. Continue home dose lisinopril. IV hydralazine as needed for blood pressure control. Cardiac diet 01/31/2020-blood pressures vary but overall reasonable control. Continue curren t medication regimen. (6) Ureteral stone with hydronephrosis Is this a current diagnosis for this admission?: Yes Plan: CT revealed moderate to severe right hydroureteronephrosis secondary to a 1 cm calculus. Per patient and family, they have been aware of the stone for multiple years. Last CT imaging done at [facility]. Have requested prior imaging for comparison on hydronephrosis. Per ED documentation and H&P, the ED provider spoke with urology and were told that this could be managed as an outpatient following treatment for his acute respiratory failure. We will continue gentle IV fluid hydration. Analgesics as needed. Start Flomax; although clearly this will not be sufficient for a 1 cm stone but may assist with any small sediment needing to pass. Strict I&O's. Trend chemistries to monitor for worsening renal function. Renal function continues to improve. Have requested most recent renal u/s and CT imagining from [facility] (Patient's believes CT was done there within the last year). Upon receipt of prior images, may need to re-consult urology services. Still have not received records. (7) Coronary artery disease Qualifiers: Coronary Disease-Associated Artery/Lesion type: [place] artery [place] vs. transplanted heart: [place] heart Associated angina: without angina Qualified Code(s): I25.10 - Atherosclerotic heart disease of [place] coronary artery without angina pectoris Is this a current diagnosis for this admission?: Yes Plan: No active chest pain. Currently on full dose Lovenox related to elevated d-dimer in setting of COVID- 19. Daily statin therapy. Cardiac diet. 01/31/2020-stable. No evidence of acute coronary syndrome. D-dimer is now less than 1.0. Lovenox is been reduced to 40 mg daily. - Time Time Spent with patient: 15-24 minutes Medications reviewed and adjusted accordingly: Yes Anticipated Discharge Disposition: Home with Home Health Anticipated Discharge Timeframe: within 72 hours
[2020-01-31] MEDS: TAMSULOSIN HCL 0.4 MG CAP.SR.24H PO SCH (17:00)
[2020-01-31] MEDS: INSULIN GLARGINE,HUM.REC.ANLOG 1,000 UNIT/10 ML VIAL SUBCUT SCH (21:55)
[2020-01-31] MEDS: ATORVASTATIN CALCIUM 20 MG TABLET PO SCH (21:55)
[2020-02-01] MEDS: ALBUTEROL SULFATE 0.083% NEB 2.5 MG/3 ML AMPUL NEB SCH (08:28)
[2020-02-01] MEDS: INSULIN REG, HUMAN 100 UNIT/ML 3 ML VIAL (PYX) SUBCUT SCH ×3 (09:04→17:20)
[2020-02-01] MEDS: PREDNISONE 20 MG TABLET PO SCH (09:07)
[2020-02-01] MEDS: FAMOTIDINE 20 MG TABLET PO SCH (09:07)
[2020-02-01] MEDS: DOCUSATE SODIUM 100 MG CAPSULE PO SCH ×2 (09:07→17:20)
[2020-02-01] MEDS: LISINOPRIL 10 MG TABLET PO SCH (09:07)
[2020-02-01] MEDS: ENOXAPARIN SODIUM INJ 40 MG/0.4 ML DISP.SYRIN SUBCUT SCH (09:08)
[2020-02-01] MEDS ORDERED: GLIMEPIRIDE 4 MG TABLET PO SCH (10:00)
[2020-02-01] MEDS ORDERED: PIOGLITAZONE HCL 15 MG TABLET PO SCH (10:00)
--- NOTE | 2020-02-01 14:42 | PDOC PROGRESS REPORT ---
Subjective Progress Note for:: 02/01/20 Subjective:: Resting in bed watching television. Still requiring oxygen. He also exhibits an intermittent cough. Reason For Visit: MULTIFOCAL PNEUMONIA,ACUTE RESPIRATORY FAILURE Physical Exam Vital Signs: Temp Pulse Resp BP Pulse Ox 98.1 F 87 17 146/77 H 94 02/01/20 11:16 02/01/20 11:16 02/01/20 11:16 02/01/20 11:16 02/01/20 11:16 Intake & Output 01/31/20 02/01/20 02/02/20 06:59 06:59 06:59 Intake Total 360 440 Output Total 475 1425 Balance -115 -985 Weight 65.9 kg 64.7 kg 64.7 kg General appearance: PRESENT: no acute distress, cooperative, well-developed, well-nourished Head exam: PRESENT: atraumatic, normocephalic Ear exam: PRESENT: normal external ear exam. ABSENT: bleeding, drainage Mouth exam: PRESENT: moist, tongue midline Neck exam: PRESENT: full ROM. ABSENT: carotid bruit, JVD, lymphadenopathy Respiratory exam: PRESENT: rales - Right base, symmetrical, other - Limited inspiratory phase. ABSENT: rhonchi, tachypnea, wheezes Cardiovascular exam: PRESENT: RRR, +S1, +S2, systolic murmur - 2/6. ABSENT: bradycardia, diastolic murmur, irregular rhythm, tachycardia GI/Abdominal exam: PRESENT: normal bowel sounds, soft. ABSENT: distended, guarding, tenderness Rectal exam: PRESENT: deferred Gentrourinary exam: ABSENT: indwelling catheter Neurological exam: PRESENT: alert, awake, oriented to person, oriented to place, oriented to time, oriented to situation, CN II-XII grossly intact. ABSENT: altered Psychiatric exam: PRESENT: appropriate affect, normal mood. ABSENT: agitated, anxious Focused psych exam: ABSENT: catatonic, delusional, paranoid, restlessness Skin exam: PRESENT: dry, normal color, warm. ABSENT: rash Results Laboratory Results: 01/28/20 05:40 01/28/20 05:40 Impressions: Chest X-Ray 01/23/20 18:26 IMPRESSION: Chronic lung changes. Cannot exclude a very limited right lower lobe pneumonia. Abdomen/Pelvis CT 01/23/20 18:54 IMPRESSION: There are bilateral groundglass airspace opacities most pronounced within the periphery. These likely reflect an atypical infection, though this can also be seen with interstitial lung processes and other etiologies. There is moderate to severe right hydroureteronephrosis, secondary to a 1 cm calculus at the proximal right ureter, just distal to the ureteropelvic junction. There are calculi seen at the left kidney measuring up to 1 [address] size. Chest CT 01/23/20 19:40 IMPRESSION: There are bilateral groundglass airspace opacities most pronounced within the periphery. These likely reflect an atypical infection, though this can also be seen with interstitial lung processes and other etiologies. There is moderate to severe right hydroureteronephrosis, secondary to a 1 cm calculus at the proximal right ureter, just distal to the ureteropelvic junction. There are calculi seen at the left kidney measuring up to 1 cm in size. Assessment and Plan - Diagnosis (1) Pneumonia due to COVID-19 virus Is this a current diagnosis for this admission?: Yes Plan: Optimistic today; patient continues to improve. Now standard NC at 2lpm and maintaining SpO2 in mid-high 90s. COVID positive D-dimer trending down Ferritin, CRP, LDH elevated. CT chest shows peripheral groundglass opacities. Recheck d. dimer tomorrow; may be able to d/c Lovenox. Did receive full dose Lovenox; now on DVT prophylaxis dosing. Supplemental oxygen as needed maintain saturations greater than 89%. Scheduled and as needed nebulizer treatments. IV dexamethasone; will transition to prednisone Completed 5 day course of Azithromycin Completed 5 day course of Remdesivir Zinc, vitamin D, vitamin C, and melatonin supplementation. Encourage pulmonary toilet. Isolation precautions. FULL CODE Patient and have decline convalescent serum. 01/31/2020-patient is comfortable. Medications completed as above. Attempt to taper to room air. 02/01/2020-patient reports that he is on home oxygen. He states that he typically uses 3 L/min. He is back to his baseline oxygen requirement. He is not exhibiting increased work of breathing at this point. Supplements specific for coronavirus treatment have been completed. (2) Multifocal pneumonia Is this a current diagnosis for this admission?: Yes Plan: Secondary to SARS-COV-2 Blood cultures negative at 5 days. Sputum cultures pending; not yet obtained. No sputum production. COVID positive. Patient is provided supplemental oxygen as needed maintain saturations greater than 89%. Patient received a 3-day course of IV Rocephin and 5-day course of azithromycin. Remaining evaluation management as above. 01/31/2020-as above (3) Acute respiratory failure with hypoxia Is this a current diagnosis for this admission?: Yes Plan: Secondary #1 and 2. Management as above. 02/01/2020-the initial plan was for the patient to obtain a trilogy ventilator machine. Reviewing this the patient reports that he has had a trilogy home vent in the past. He actually returned it as he could not afford the co-pays. I believe he even has an outstanding balance. In addition the plan for transition to a local senior care facility is not possible if he is going to use the trilogy and he will have to go to a facility that does accept patients with ventilator capability even if it is intermittent use. Applications have been sent out to [facility]. (4) Hyperglycemia due to type 2 diabetes mellitus Qualifiers: Diabetes mellitus predatory animal exterminator insulin use: with custodial use Qualified Code(s): E11.65 - Type 2 diabetes mellitus with hyperglycemia; Z79.4 - penitentiary (current) use of insulin Is this a current diagnosis for this admission?: Yes Plan: 01/31/2020-variant same hyperglycemia. Steroids are contributing. Will resume pioglitazone and glimepiride in addition to long-acting insulin and sliding scale coverage. Continue to monitor Accu-Cheks. 02/01/2020-still with significant hyperglycemia. I reviewed the sliding scale and he has been requiring at least 20+ units daily. I will increase the Lantus to 16 units today and review his Accu-Cheks tomorrow. Then consider adjusting again. At discharge he can go back to his [place]. I will decrease the pred nisone (5) Hypertension Qualifiers: Hypertension type: essential hypertension Qualified Code(s): I10 - Essential (primary) hypertension Is this a current diagnosis for this admission?: Yes (6) Ureteral stone with hydronephrosis Is this a current diagnosis for this admission?: Yes (7) Coronary artery disease Qualifiers: Coronary Disease-Associated Artery/Lesion type: [place] artery [place] vs. transplanted heart: [place] heart Associated angina: without angina Qualified Code(s): I25.10 - Atherosclerotic heart disease of [place] coronary artery without angina pectoris Is this a current diagnosis for this admission?: Yes
--- NOTE | 2020-02-01 16:54 | PDOC DISCHARGE SUMMARY ---
Impression - Admit/DC Date/PCP Admission Date/Primary Care Provider: 01/24/20 00:03 PADMA GUILLORY MD Discharge Date: 02/01/20 - Discharge Diagnosis (1) Pneumonia due to COVID-19 virus Is this a current diagnosis for this admission?: Yes (2) Multifocal pneumonia Is this a current diagnosis for this admission?: Yes (3) Acute respiratory failure with hypoxia Is this a current diagnosis for this admission?: Yes (4) Hyperglycemia due to type 2 diabetes mellitus Is this a current diagnosis for this admission?: Yes (5) Hypertension Is this a current diagnosis for this admission?: Yes (6) Ureteral stone with hydronephrosis Is this a current diagnosis for this admission?: Yes (7) Coronary artery disease Is this a current diagnosis for this admission?: Yes - Additional Information Resuscitation Status: Full Code Discharge Diet: Cardiac, Diabetic Discharge Activity: Activity As Tolerated, Balance Activity w/Rest Referrals: PADMA GUILLORY MD [Primary Care Provider] - Follow up as needed Prescriptions: RX: Tamsulosin HCl [Flomax 0.4 mg Cap.sr] 0.4 mg PO PCSUPPER #30 cap.sr.24h RX: Atorvastatin Calcium [Lipitor 20 mg Tablet] 20 mg PO QHS #30 tablet Budesonide/Formoterol Fumarate [Symbicort Hfa 80-4.5 Mcg Inhaler 6.9 gm] 1 puff IH BID #1 inhaler Home Medications: RX: Insulin Degludec [Tresiba Flextouch U-200] 20 units SQ DAILY MDD 40 units 06/08/19 RX: Lisinopril 20 mg PO DAILY 06/08/19 RX: Pioglitazone HCl [Actos 15 mg Tablet] 15 mg PO DAILY 06/08/19 RX: Glimepiride [Amaryl 4 mg Tablet] 4 mg PO DAILY 01/24/20 Budesonide/Formoterol Fumarate [Symbicort Hfa 80-4.5 Mcg Inhaler 6.9 gm] 1 puff IH BID #1 inhaler 02/01/20 RX: Atorvastatin Calcium [Lipitor 20 mg Tablet] 20 mg PO QHS #30 tablet 02/01/20 RX: Melatonin [Melatonin 5 mg Tablet] 5 mg PO HSP PRN tablet 02/01/20 RX: Tamsulosin HCl [Flomax 0.4 mg Cap.sr] 0.4 mg PO PCSUPPER #30 cap.sr.24h 02/01/20 History of Present Illiness History of Present Illness: VANIA NUNES is a 79 year old male who presents the emergency room with a 1- week history of dyspnea. He admits gradually worsening dyspnea accompanied by a nonproductive cough and intermittent chest pains over the course of the last week. His dyspnea has more recently been associated with subjective fever with chills, vague achy periumbilical abdominal pain and one episode of vomiting yesterday. His dyspnea is worsened with exertion. He denies other associated or accompanying signs and symptoms. He denies prior similar episodes. He has not identified any additional aggravating or ameliorating factors for his dyspnea. In the emergency room he was found to be hypoxic on room air and improved with supplemental oxygen via nasal cannula. His chest CT revealed a multifocal pneumonia consistent with COVID-19. Patient was subsequently admitted for further evaluation and treatment after initiation of dexamethasone and antibiotic therapy in the emergency room. Patient is noted to be a very poor historian. Hospital Course Hospital Course: (1) Pneumonia due to COVID-19 virus Is this a current diagnosis for this admission?: Yes Plan: Optimistic today; patient continues to improve. Now standard NC at 2lpm and maintaining SpO2 in mid-high 90s. COVID positive D-dimer trending down Ferritin, CRP, LDH elevated. CT chest shows peripheral groundglass opacities. Recheck d. dimer tomorrow; may be able to d/c Lovenox. Did receive full dose Lovenox; now on DVT prophylaxis dosing. Supplemental oxygen as needed maintain saturations greater than 89%. Scheduled and as needed nebulizer treatments. IV dexamethasone; will transition to prednisone Completed 5 day course of Azithromycin Completed 5 day course of Remdesivir Zinc, vitamin D, vitamin C, and melatonin supplementation. Encourage pulmonary toilet. Isolation precautions. FULL CODE Patient and have decline convalescent serum. 01/31/2020-patient is comfortable. Medications completed as above. Attempt to taper to room air. (2) Multifocal pneumonia Is this a current diagnosis for this admission?: Yes Plan: Secondary to SARS-COV-2 Blood cultures negative at 5 days. Sputum cultures pending; not yet obtained. No sputum production. COVID positive. Patient is provided supplemental oxygen as needed maintain saturations greater than 89%. Patient received a 3-day course of IV Rocephin and 5-day course of azithromycin. Remaining evaluation management as above. 01/31/2020-as above (3) Acute respiratory failure with hypoxia Is this a current diagnosis for this admission?: Yes (4) Hyperglycemia due to type 2 diabetes mellitus Qualifiers: Diabetes mellitus halfway insulin use: with halfway use Qualified Code(s): E11.65 - Type 2 diabetes mellitus with hyperglycemia; Z79.4 - custodial (current) use of insulin Is this a current diagnosis for this admission?: Yes Plan: 01/31/2020-variant same hyperglycemia. Steroids are contributing. Will resume pioglitazone and glimepiride in addition to long-acting insulin and sliding scale coverage. Continue to monitor Accu-Cheks. (5) Hypertension Qualifiers: Hypertension type: essential hypertension Qualified Code(s): I10 - Essential (primary) hypertension Is this a current diagnosis for this admission?: Yes Plan: Adequately controlled at present. Continue home dose lisinopril. IV hydralazine as needed for blood pressure control. Cardiac diet 01/31/2020-blood pressures vary but overall reasonable control. Continue current medication regimen. (6) Ureteral stone with hydronephrosis Is this a current diagnosis for this admission?: Yes Plan: CT revealed moderate to severe right hydroureteronephrosis secondary to a 1 cm calculus. Per patient and family, they have been aware of the stone for multiple years. Last CT imaging done at [facility]. Have requested prior imaging for comparison on hydronephrosis. Per ED documentation and H&P, the ED provider spoke with urology and were told that this could be managed as an outpatient following treatment for his acute respiratory failure. We will continue gentle IV fluid hydration. Analgesics as needed. Start Flomax; although clearly this will not be sufficient for a 1 cm stone but may assist with any small sediment needing to pass. Strict I&O's. Trend chemistries to monitor for worsening renal function. Renal function continues to improve. Have requested most recent renal u/s and CT imagining from [facility] (Patient's believes CT was done there within the last year). Upon receipt of prior images, may need to re-consult urology services. Still have not received records. (7) Coronary artery disease Qualifiers: Coronary Disease-Associated Artery/Lesion type: [place] artery [place] vs. transplanted heart: [place] heart Associated angina: without angina Qualified Code(s): I25.10 - Atherosclerotic heart disease of [place] coronary artery without angina pectoris Is this a current diagnosis for this admission?: Yes Plan: No active chest pain. Currently on full dose Lovenox related to elevated d-dimer in setting of COVID- 19. Daily statin therapy. Cardiac diet. 01/31/2020-stable. No evidence of acute coronary syndrome. D-dimer is now less than 1.0. Lovenox is been reduced to 40 mg daily. Physical Exam Vital Signs: Temp Pulse Resp BP Pulse Ox 98.1 F 87 17 146/77 H 94 02/01/20 11:16 02/01/20 14:00 02/01/20 11:16 02/01/20 11:16 02/01/20 11:16 Intake & Output 01/31/20 02/01/20 02/02/20 06:59 06:59 06:59 Intake Total 360 440 Output Total 475 1425 Balance -115 -985 Weight 65.9 kg 64.7 kg 64.7 kg General appearance: PRESENT: no acute distress, cooperative, well-developed, well-nourished Head exam: PRESENT: atraumatic, normocephalic Ear exam: PRESENT: normal external ear exam. ABSENT: bleeding, drainage Respiratory exam: PRESENT: rales - Faint rales right base, symmetrical, unlabored. ABSENT: rhonchi, tachypnea, wheezes Cardiovascular exam: PRESENT: RRR, +S1, +S2. ABSENT: bradycardia, diastolic murmur, irregular rhythm, systolic murmur, tachycardia GI/Abdominal exam: PRESENT: normal bowel sounds, soft. ABSENT: distended, guarding, tenderness Rectal exam: PRESENT: deferred Gentrourinary exam: ABSENT: indwelling catheter Extremities exam: ABSENT: pedal edema Musculoskeletal exam: PRESENT: ambulatory, normal inspection. ABSENT: deformity, dislocation Neurological exam: PRESENT: alert, awake, oriented to person, oriented to place, oriented to situation. ABSENT: altered Psychiatric exam: PRESENT: flat affect. ABSENT: agitated, anxious Focused psych exam: ABSENT: delusional, paranoid, restlessness Skin exam: PRESENT: dry, normal color, warm. ABSENT: rash Results Laboratory Results: WBC 8.9 10^3/uL (4.0-10.5) 01/28/20 05:40 RBC 4.28 10^6/uL (4.35-5.55) L 01/28/20 05:40 Hgb 13.3 g/dL (13.5-17.0) L 01/28/20 05:40 Hct 38.2 % (37.9-51.0) 01/28/20 05:40 MCV 89 fl (80-97) 01/28/20 05:40 MCH 31.1 pg (27.0-33.4) 01/28/20 05:40 MCHC 34.9 g/dL (32.0-36.0) 01/28/20 05:40 RDW 14.8 % (11.5-14.0) H 01/28/20 05:40 Plt Count 367 10^3/uL (150-450) 01/28/20 05:40 Lymph % (Auto) 12.5 % (13-45) L 01/23/20 17:34 [place] % (Auto) 8.3 % (3-13) 01/23/20 17:34 Eos % (Auto) 0.0 % (0-6) 01/23/20 17:34 Baso % (Auto) 0.2 % (0-2) 01/23/20 17:34 Absolute Neuts (auto) 5.3 10^3/uL (1.7-8.2) 01/23/20 17:34 Absolute Lymphs (auto) 0.8 10^3/uL (0.5-4.7) 01/23/20 17:34 Absolute Monos (auto) 0.6 10^3/uL (0.1-1.4) 01/23/20 17:34 Absolute Eos (auto) 0.0 10^3/uL (0.0-0.6) 01/23/20 17:34 Absolute Basos (auto) 0.0 10^3/uL (0.0-0.2) 01/23/20 17:34 Seg Neutrophils % 79.0 % (42-78) H 01/23/20 17:34 D-Dimer 0.66 ug/mL (0.00-0.50) H 01/28/20 05:40 Carbonic Acid 1.05 mmol/L (1.05-1.35) 01/24/20 21:45 HCO3/H2CO3 Ratio 21:1 01/24/20 21:45 ABG pH 7.42 (7.35-7.45) 01/24/20 21:45 ABG pCO2 34.9 mmHg (35-45) L 01/24/20 21:45 ABG pO2 70.0 mmHg (80-100) L 01/24/20 21:45 ABG HCO3 22.2 mmol/L (20-24) 01/24/20 21:45 ABG Total CO2 23.3 mmol/L (23-27) 01/24/20 21:45 ABG O2 Saturation 94.5 % (94-98) 01/24/20 21:45 ABG Base Excess -1.6 mmol/L 01/24/20 21:45 VBG pH 7.38 (7.30-7.42) 01/23/20 19:05 VBG pCO2 46.8 mmHg (35-63) 01/23/20 19:05 VBG HCO3 26.8 mmol/L (20-32) 01/23/20 19:05 VBG Base Excess 1.0 mmol/L 01/23/20 19:05 FiO2 6L 01/24/20 21:45 Sodium 138.4 mmol/L (137-145) 01/28/20 05:40 Potassium 4.3 mmol/L (3.6-5.0) 01/28/20 05:40 Chloride 104 mmol/L (98-107) 01/28/20 05:40 Carbon Dioxide 25 mmol/L (22-30) 01/28/20 05:40 Anion Gap 9 (5-19) 01/28/20 05:40 BUN 26 mg/dL (7-20) H 01/28/20 05:40 Creatinine 1.07 mg/dL (0.52-1.25) 01/28/20 05:40 Est GFR ( Amer) > 60 (>60) 01/28/20 05:40 Est GFR (MDRD) Non-Af > 60 (>60) 01/28/20 05:40 Glucose 209 mg/dL (75-110) H 01/28/20 05:40 POC Glucose 202 mg/dL (70-110) H 02/01/20 15:11 Hemoglobin A1c % 10.2 % (4.7-6.0) H 01/25/20 04:12 Lactic Acid 1.4 mmol/L (0.7-2.1) 01/23/20 21:03 Calcium 8.5 mg/dL (8.4-10.2) 01/28/20 05:40 Magnesium 2.3 mg/dL (1.6-2.3) 01/25/20 04:12 Ferritin 1000.00 ng/mL (17.9-464.0) H 01/23/20 17:34 Total Bilirubin 0.6 mg/dL (0.2-1.3) 01/25/20 04:12 Direct Bilirubin 0.4 mg/dL (0.0-0.4) 01/25/20 04:12 Neonat Total Bilirubin Not Reportable 01/25/20 04:12 Neonat Direct Bilirubin Not Reportable 01/25/20 04:12 Neonat Indirect Bili Not Reportable 01/25/20 04:12 AST 100 U/L (17-59) H 01/25/20 04:12 ALT 98 U/L (<50) H 01/25/20 04:12 Alkaline Phosphatase 65 U/L (38-126) 01/25/20 04:12 Lactate Dehydrogenase 461 U/L (120-246) H 01/23/20 17:34 C-Reactive Protein 159.1 mg/L (<10.0) H 01/23/20 17:34 Total Protein 5.9 g/dL (6.3-8.2) L 01/25/20 04:12 Albumin 3.2 g/dL (3.5-5.0) L 01/25/20 04:12 Triglycerides 168 mg/dL (<150) H 01/25/20 04:12 Cholesterol 178.96 mg/dL (0-200) 01/25/20 04:12 LDL Cholesterol Direct 83 mg/dL (<100) 01/25/20 04:12 VLDL Cholesterol 33.6 mg/dL (10-31) H 01/25/20 04:12 HDL Cholesterol 69 mg/dL (>40) 01/25/20 04:12 Lipase 345.1 U/L (23-300) H 01/23/20 17:34 Urine Color YELLOW 01/30/20 06:35 Urine Appearance CLEAR 01/30/20 06:35 Urine pH 6.0 (5.0-9.0) 01/30/20 06:35 Ur Specific [place] 1.014 01/30/20 06:35 Urine Protein 30 mg/dL (NEGATIVE) H 01/30/20 06:35 Urine Glucose (UA) >=500 mg/dL (NEGATIVE) H 01/30/20 06:35 Urine Ketones NEGATIVE mg/dL (NEGATIVE) 01/30/20 06:35 Urine Blood NEGATIVE (NEGATIVE) 01/30/20 06:35 Urine Nitrite NEGATIVE (NEGATIVE) 01/30/20 06:35 Urine Bilirubin NEGATIVE (NEGATIVE) 01/30/20 06:35 Urine Urobilinogen NEGATIVE mg/dL (<2.0) 01/30/20 06:35 Ur Leukocyte Esterase NEGATIVE (NEGATIVE) 01/30/20 06:35 Urine WBC (Auto) 3 /HPF 01/30/20 06:35 Urine RBC (Auto) 1 /HPF 01/30/20 06:35 Squamous Epi Cells Auto <1 /HPF 01/27/20 08:30 Urine Mucus (Auto) RARE /LPF 01/27/20 08:30 Urine Ascorbic Acid NEGATIVE (NEGATIVE) 01/30/20 06:35 COVID-19 Source See comment 01/23/20 18:34 COVID-19 (RITA) DETECTED (Not Detect) A 01/23/20 18:34 Influenza A (Rapid) NEGATIVE (NEGATIVE) 01/23/20 18:34 Influenza B (Rapid) NEGATIVE (NEGATIVE) 01/23/20 18:34 Impressions: Chest X-Ray 01/23/20 18:26 IMPRESSION: Chronic lung changes. Cannot exclude a very limited right lower lobe pneumonia. Abdomen/Pelvis CT 01/23/20 18:54 IMPRESSION: There are bilateral groundglass airspace opacities most pronounced within the periphery. These likely reflect an atypical infection, though this can also be seen with interstitial lung processes and other etiologies. There is moderate to severe right hydroureteronephrosis, secondary to a 1 cm calculus at the proximal right ureter, just distal to the ureteropelvic junction. There are calculi seen at the left kidney measuring up to 1 [address] in size. Chest CT 01/23/20 19:40 IMPRESSION: There are bilateral groundglass airspace opacities most pronounced within the periphery. These likely reflect an atypical infection, though this can also be seen with interstitial lung processes and other etiologies. There is moderate to severe right hydroureteronephrosis, secondary to a 1 cm calculus at the proximal right ureter, just distal to the ureteropelvic junction. There are calculi seen at the left kidney measuring up to 1 cm in size. Plan Health Concerns: COVID pneumonia with ongoing oxygen requirement despite resolution of pneumonia Plan of Treatment: The patient will now have oxygen for home use. I have added a Symbicort inhaler to use until follow-up with his primary care provider. For his underlying diabetes we have added statin therapy. He is already on an SARAH inhibitor. He does have the kidney stone with hydronephrosis and we have added Flomax to help with urine flow. He did complete all of his therapy for Covid-19. Goals: Continued resolution of sequela of Covid-19 pneumonia. At this time I am unsure if he will ever be able to get off of oxygen therapy. Time Spent: Greater than 30 Minutes Stroke Is this a Stroke Patient?: No Acute Heart Failure Is this a Heart Failure Patient?: No
[2020-02-01] MEDS: TAMSULOSIN HCL 0.4 MG CAP.SR.24H PO SCH (17:20)
[2020-02-01 17:44] VITALS: BP 129/78
[2020-02-01] MEDS ORDERED: INSULIN GLARGINE,HUM.REC.ANLOG 1,000 UNIT/10 ML VIAL SUBCUT SCH ×2 (22:00)
== END 2020-02-01 18:30 | disposition home health service (06) | DRG 177 ==
LOC: ER 15:59 → EH 01-24 00:03 → 3N 01-24 02:03
PROVIDERS: ADMIT Emergency Medicine; ATTEND Hospitalist
PROC: XW033E5 Introduction of Remdesivir Anti-infective into Peripheral Vein, Percutaneous Approach, New Technology Group 5 (ICD-10-PCS; principal; 2020-01-25)
DX: U07.1 COVID-19 (principal); J12.89 Other viral pneumonia; J96.01 Acute respiratory failure with hypoxia; N13.2 Hydronephrosis with renal and ureteral calculous obstruction; E11.65 Type 2 diabetes mellitus with hyperglycemia; I10 Essential (primary) hypertension; I25.10 Atherosclerotic heart disease of native coronary artery without angina pectoris; Z79.4 Long term (current) use of insulin; Z79.899 Other long term (current) drug therapy; I25.2 Old myocardial infarction; Z83.3 Family history of diabetes mellitus; Z82.49 Family history of ischemic heart disease and other diseases of the circulatory system
CPT/HCPCS: 36415; 36600; 71045; 71250; 74176; 80048; 80053; 80061; 81001; 82728; 82803; 82962; 83036; 83605; 83615; 83690; 83735; 85025; 85027; 85379; 86140; 87040; 87086; 87635; 87804; 90471; 90686; 93005; 93010; 94640; 94799; 96361; 96374; 96375; 99285; C9803; G0008; J0456; J0696; J1100; J1644; J1650; J1815; J2060; J2270; J2405; J3490; J7030; J7050; J7060; J7512; J7613